=== PATIENT | female | born 1945 | race Two or more races ===

== ENCOUNTER → 2017-08-04 | Outpatient (CLI) | payer MEDICARE, OTHER ==
[2017-08-04 09:09] LABS: ADD MAN DIFF? NO
[2017-08-04 09:18] LABS: BASOPHILS % 0.6 % (0.0-2.0); EOSINOPHILS # 0.2 10^3/ul (0.0-0.5); EOSINOPHILS % 3.3 % (0.0-7.0); HEMATOCRIT 36.9 % (37.0-47.0); HEMOGLOBIN 11.3 g/dl (12.0-16.0); LYMPHOCYTES # 1.8 10^3/ul (0.8-2.9); LYMPHOCYTES % 26.4 % (15.0-51.0); MEAN CORPUSCULAR HEMOGLOBIN 26.5 pg (29.0-33.0); MEAN CORPUSCULAR HGB CONC 30.6 g/dl (32.0-37.0); MEAN CORPUSCULAR VOLUME 86.4 fl (82.0-101.0); MEAN PLATELET VOLUME 10.9 fl (7.4-10.4); MONOCYTE # 0.4 10^3/ul (0.3-0.9); MONOCYTES % 6.5 % (0.0-11.0); NEUTROPHIL # 4.2 10^3/ul (1.6-7.5); NEUTROPHILS % 62.9 % (39.0-77.0); PLATELET COUNT 238 10^3/UL (140-415); RED BLOOD COUNT 4.27 10^6/ul (4.20-5.40); RED CELL DISTRIBUTION WIDTH 13.4 % (11.5-14.5)
[2017-08-04 09:18] LABS: WHITE BLOOD COUNT 6.7 10^3/ul (4.8-10.8)
[2017-08-04 09:39] LABS: ALANINE AMINOTRANSFERASE 33 IU/L (13-69); ALBUMIN 4.1 g/dl (3.3-4.9); ALBUMIN/GLOBULIN RATIO 1.13; ALKALINE PHOSPHATASE 90 IU/L (42-121); ANION GAP 15 (8-16); ASPARTATE AMINO TRANSFERASE 22 IU/L (15-46); BILIRUBIN,INDIRECT 0.3 mg/dl (0-1.1); BILIRUBIN,TOTAL 0.3 mg/dl (0.2-1.3); BLOOD UREA NITROGEN 12 mg/dl (7-20); CALCIUM 9.6 mg/dl (8.4-10.2); CARBON DIOXIDE 30 mmol/L (21-31); CHLORIDE 103 mmol/L (97-110); CHOL/HDL RATIO 3.1 RATIO; CHOLESTEROL 140 mg/dl (100-200); CREATININE 0.63 mg/dl (0.44-1.00); GLUCOSE 118 mg/dl (70-220); HDL CHOLESTEROL 45 mg/dl (33-92); LDL CHOLESTEROL,CALCULATED 71 mg/dl; POTASSIUM 4.6 mmol/L (3.5-5.1); SODIUM 143 mmol/L (135-144); TOTAL PROTEIN 7.7 g/dl (6.1-8.1); TRIGLYCERIDES 122 mg/dl (0-149)
[2017-08-04 09:42] LABS: INR 2.22; PROTIME 25.2 Sec (11.9-14.9)
[2017-08-04 10:17] LABS: ADD UMIC YES; UR ASCORBIC ACID NEGATIVE (NEGATIVE); UR BACTERIA MANY /HPF (NONE SEEN); UR BILIRUBIN (Dip) NEGATIVE (NEGATIVE); UR BLOOD (Dip) NEGATIVE (NEGATIVE); UR CLARITY SLIGHTLY CLOUDY (CLEAR); UR COLOR YELLOW (YELLOW); UR GLUCOSE (Dip) NEGATIVE (NEGATIVE); UR KETONES (Dip) NEGATIVE (NEGATIVE); UR LEUKOCYTE ESTERASE (Dip) NEGATIVE Leu/ul (NEGATIVE); UR NITRITE (Dip) POSITIVE (NEGATIVE); UR RBC 1 /HPF (0-5); UR SPECIFIC GRAVITY (Dip) 1.014 (1.003-1.030); UR SQUAMOUS EPITHELIAL CELL FEW /HPF (FEW); UR TOTAL PROTEIN (Dip) NEGATIVE (NEGATIVE); UR UROBILINOGEN (Dip) NEGATIVE (NEGATIVE); UR WBC 3 /HPF (0-5)
[2017-08-04 10:31] LABS: HEMOGLOBIN A1C 6.3 % (0-5.9)
[2017-08-05 15:07] LABS: CREATININE, RANDOM URINE 85 mg/dL (20-320); MICROALBUMIN 0.5 mg/dL; MICROALBUMIN/CREATININE RATIO 6 (<30)
[2017-08-05 17:21] LABS: PTH CALCIUM 9.4 mg/dL (8.6-10.4)
[2017-08-06 07:46] LABS: PTH INTACT 62 pg/mL (14-64)
== END | disposition home or self-care (01) ==
LOC: LAB 08:33
DX: E11.9 Type 2 diabetes mellitus without complications (principal); I10 Essential (primary) hypertension; I25.10 Atherosclerotic heart disease of native coronary artery without angina pectoris; I48.91 Unspecified atrial fibrillation
CPT/HCPCS: 80053; 80061; 81001; 82043; 83036; 83970; 85025; 85610

== ENCOUNTER → 2017-10-10 | Outpatient (CLI) | payer MEDICARE, OTHER ==
[2017-10-10 09:25] LABS: ADD MAN DIFF? NO
[2017-10-10 09:32] LABS: BASOPHIL # 0.1 10^3/ul (0.0-0.1); BASOPHILS % 0.7 % (0.0-2.0); EOSINOPHILS # 0.2 10^3/ul (0.0-0.5); EOSINOPHILS % 3.4 % (0.0-7.0); HEMATOCRIT 37.7 % (37.0-47.0); HEMOGLOBIN 11.5 g/dl (12.0-16.0); LYMPHOCYTES # 1.8 10^3/ul (0.8-2.9); LYMPHOCYTES % 26.3 % (15.0-51.0); MEAN CORPUSCULAR HGB CONC 30.5 g/dl (32.0-37.0); MEAN CORPUSCULAR VOLUME 85.3 fl (82.0-101.0); MEAN PLATELET VOLUME 11.3 fl (7.4-10.4); MONOCYTE # 0.4 10^3/ul (0.3-0.9); MONOCYTES % 6.1 % (0.0-11.0); NEUTROPHIL # 4.2 10^3/ul (1.6-7.5); NEUTROPHILS % 63.1 % (39.0-77.0); PLATELET COUNT 213 10^3/UL (140-415); RED BLOOD COUNT 4.42 10^6/ul (4.20-5.40); RED CELL DISTRIBUTION WIDTH 13.9 % (11.5-14.5)
[2017-10-10 09:32] LABS: WHITE BLOOD COUNT 6.7 10^3/ul (4.8-10.8)
[2017-10-10 09:37] LABS: HEMOGLOBIN A1C 6.2 % (0-5.9)
[2017-10-10 09:38] LABS: UR BACTERIA MANY /HPF (NONE SEEN); UR RBC 1 /HPF (0-5); UR SQUAMOUS EPITHELIAL CELL FEW /HPF (FEW); UR WBC 21 /HPF (0-5)
[2017-10-10 09:48] LABS: ADD UMIC YES; UR ASCORBIC ACID NEGATIVE (NEGATIVE); UR BILIRUBIN (Dip) NEGATIVE (NEGATIVE); UR BLOOD (Dip) NEGATIVE (NEGATIVE); UR CLARITY SLIGHTLY CLOUDY (CLEAR); UR COLOR YELLOW (YELLOW); UR GLUCOSE (Dip) NEGATIVE (NEGATIVE); UR KETONES (Dip) NEGATIVE (NEGATIVE); UR LEUKOCYTE ESTERASE (Dip) 1+ Leu/ul (NEGATIVE); UR NITRITE (Dip) POSITIVE (NEGATIVE); UR SPECIFIC GRAVITY (Dip) 1.016 (1.003-1.030); UR TOTAL PROTEIN (Dip) NEGATIVE (NEGATIVE); UR UROBILINOGEN (Dip) NEGATIVE (NEGATIVE)
[2017-10-10 09:58] LABS: ALANINE AMINOTRANSFERASE 28 IU/L (13-69); ALBUMIN 4.1 g/dl (3.3-4.9); ALBUMIN/GLOBULIN RATIO 1.17; ALKALINE PHOSPHATASE 92 IU/L (42-121); ANION GAP 10 (8-16); ASPARTATE AMINO TRANSFERASE 24 IU/L (15-46); BILIRUBIN,INDIRECT 0.6 mg/dl (0-1.1); BILIRUBIN,TOTAL 0.6 mg/dl (0.2-1.3); BLOOD UREA NITROGEN 11 mg/dl (7-20); CALCIUM 9.3 mg/dl (8.4-10.2); CARBON DIOXIDE 31 mmol/L (21-31); CHLORIDE 107 mmol/L (97-110); CHOLESTEROL 139 mg/dl (100-200); CREATININE 0.62 mg/dl (0.44-1.00); GLUCOSE 119 mg/dl (70-220); HDL CHOLESTEROL 45 mg/dl (33-92); LDL CHOLESTEROL,CALCULATED 64 mg/dl; POTASSIUM 4.4 mmol/L (3.5-5.1); SODIUM 144 mmol/L (135-144); TOTAL PROTEIN 7.6 g/dl (6.1-8.1); TRIGLYCERIDES 151 mg/dl (0-149)
[2017-10-10 10:02] LABS: INR 2.28; PROTIME 25.7 Sec (11.9-14.9)
[2017-10-13 14:57] LABS: CREATININE, RANDOM URINE 161 mg/dL (20-320); MICROALBUMIN 0.9 mg/dL; MICROALBUMIN/CREATININE RATIO 6 (<30)
[2017-10-13 17:11] LABS: PTH CALCIUM 9.2 mg/dL (8.6-10.4)
[2017-10-14 07:47] LABS: PTH INTACT 59 pg/mL (14-64)
== END | disposition home or self-care (01) ==
LOC: LAB 08:22
DX: I12.9 Hypertensive chronic kidney disease with stage 1 through stage 4 chronic kidney disease, or unspecified chronic kidney disease (principal); N18.9 Chronic kidney disease, unspecified
CPT/HCPCS: 80053; 80061; 81001; 82043; 83036; 83970; 85025; 85610

== ENCOUNTER → 2017-12-10 | Outpatient (CLI) | payer MEDICARE, OTHER | END | disposition home or self-care (01) | LOC: RAD 09:28 | DX: R91.8 Other nonspecific abnormal finding of lung field (principal) | CPT/HCPCS: 71046 ==

== ENCOUNTER → 2017-12-19 | Outpatient (CLI) | payer MEDICARE, OTHER | END | disposition home or self-care (01) | LOC: RAD 08:53 | DX: N18.9 Chronic kidney disease, unspecified (principal); I51.7 Cardiomegaly; J90 Pleural effusion, not elsewhere classified | CPT/HCPCS: 71046 ==

== ENCOUNTER 2017-12-20 08:38 | Inpatient (IN) | payer MEDICARE, OTHER ==
[2017-12-20 09:15] LABS: ADD MAN DIFF? NO
[2017-12-20 09:19] LABS: BASOPHILS % 0.5 % (0.0-2.0); EOSINOPHILS # 0.3 10^3/ul (0.0-0.5); HEMOGLOBIN 12.9 g/dl (12.0-16.0); LYMPHOCYTES # 1.7 10^3/ul (0.8-2.9); LYMPHOCYTES % 19.2 % (15.0-51.0); MEAN CORPUSCULAR HEMOGLOBIN 25.6 pg (29.0-33.0); MEAN CORPUSCULAR HGB CONC 30.7 g/dl (32.0-37.0); MEAN CORPUSCULAR VOLUME 83.3 fl (82.0-101.0); MEAN PLATELET VOLUME 11.2 fl (7.4-10.4); MONOCYTE # 0.7 10^3/ul (0.3-0.9); MONOCYTES % 7.7 % (0.0-11.0); NEUTROPHIL # 6.1 10^3/ul (1.6-7.5); NEUTROPHILS % 69.3 % (39.0-77.0); PLATELET COUNT 267 10^3/UL (140-415); RED BLOOD COUNT 5.04 10^6/ul (4.20-5.40); RED CELL DISTRIBUTION WIDTH 13.9 % (11.5-14.5)
[2017-12-20 09:19] LABS: WHITE BLOOD COUNT 8.9 10^3/ul (4.8-10.8)
[2017-12-20] MEDS: SOD CHLORIDE 0.9% 500 ML IV (09:19)
[2017-12-20 09:40] LABS: ALANINE AMINOTRANSFERASE 24 IU/L (13-69); ALBUMIN 4.4 g/dl (3.3-4.9); ALBUMIN/GLOBULIN RATIO 1.18; ALKALINE PHOSPHATASE 93 IU/L (42-121); ANION GAP 12 (8-16); ASPARTATE AMINO TRANSFERASE 26 IU/L (15-46); BILIRUBIN,INDIRECT 0.8 mg/dl (0-1.1); BILIRUBIN,TOTAL 0.8 mg/dl (0.2-1.3); BLOOD UREA NITROGEN 17 mg/dl (7-20); CALCIUM 9.3 mg/dl (8.4-10.2); CARBON DIOXIDE 33 mmol/L (21-31); CHLORIDE 100 mmol/L (97-110); CREATININE 0.67 mg/dl (0.44-1.00); GLUCOSE 142 mg/dl (70-220); LIPASE 50 U/L (23-300); POTASSIUM 3.8 mmol/L (3.5-5.1); SODIUM 141 mmol/L (135-144); TOTAL PROTEIN 8.1 g/dl (6.1-8.1)
[2017-12-20 09:49] LABS: TROPONIN-I < 0.010 ng/ml (0.000-0.120)
[2017-12-20 10:08] LABS: ADD UMIC YES; UR AMORPHOUS CRYSTAL FEW /HPF (NONE SEEN); UR ASCORBIC ACID NEGATIVE (NEGATIVE); UR BACTERIA MANY /HPF (NONE SEEN); UR BILIRUBIN (Dip) NEGATIVE (NEGATIVE); UR BLOOD (Dip) NEGATIVE (NEGATIVE); UR CLARITY SLIGHTLY CLOUDY (CLEAR); UR COLOR YELLOW (YELLOW); UR GLUCOSE (Dip) NEGATIVE (NEGATIVE); UR KETONES (Dip) NEGATIVE (NEGATIVE); UR LEUKOCYTE ESTERASE (Dip) TRACE Leu/ul (NEGATIVE); UR MUCUS FEW /HPF (NONE SEEN); UR NITRITE (Dip) NEGATIVE (NEGATIVE); UR RBC 2 /HPF (0-5); UR SPECIFIC GRAVITY (Dip) 1.017 (1.003-1.030); UR TOTAL PROTEIN (Dip) NEGATIVE (NEGATIVE); UR UROBILINOGEN (Dip) 2+ mg/dL (NEGATIVE); UR WBC 8 /HPF (0-5)
[2017-12-20] MEDS: CEPHALEXIN 500 MG CAP PO (10:53)
[2017-12-20] MEDS: FUROSEMIDE 40 MG INJ IV (10:55)
[2017-12-20 13:42] LABS: PROTIME 28.6 Sec (11.9-14.9); PT RATIO 2.2
[2017-12-20 14:39] LABS: INR 2.73; PROTIME 29.7 Sec (11.9-14.9); PT RATIO 2.3
[2017-12-20] MEDS ORDERED: DEXTROSE 50% 50 ML SYRINGE IV ×2 (15:00)
[2017-12-20] MEDS ORDERED: GLUCOSE GEL 15 GRAM TUBE PO ×2 (15:00)
[2017-12-20] MEDS ORDERED: GLUCAGON 1 MG INJ IM (15:00)
[2017-12-20] MEDS ORDERED: GLUCOSE GEL 15 GRAM TUBE BUCCAL (15:00)
[2017-12-20] MEDS ORDERED: NON-FORMULARY/PATIENT OWN MED (Digoxin* (Digitek*) 0.125 MG) PO (15:00)
[2017-12-20] MEDS: DIGOXIN 0.125 MG TAB PO (15:28)
[2017-12-20] MEDS ORDERED: ONDANSETRON 4 MG TAB PO (15:30)
[2017-12-20] MEDS ORDERED: DOCUSATE SODIUM 100 MG CAP PO (15:30)
[2017-12-20] MEDS ORDERED: ACETAMINOPHEN 650 MG SUPP PR (15:30)
[2017-12-20] MEDS ORDERED: ACETAMINOPHEN 325 MG TAB PO (15:30)
[2017-12-20] MEDS ORDERED: ONDANSETRON 4 MG INJ IV (15:30)
[2017-12-20] MEDS ORDERED: morphine 2 MG INJ IV (15:30)
[2017-12-20] MEDS ORDERED: MAGNESIUM HYDROXIDE 30ML CUP PO (15:30)
[2017-12-20] MEDS: OXYBUTYNIN 5 MG TAB PO (15:39)
[2017-12-20] MEDS: METOPROLOL (XL) 50 MG TAB PO ×2 (15:40→20:25)
[2017-12-20] MEDS: CEFTRIAXONE 1 GM/50 ML (PMX) 50 ML IVPB (15:40)
[2017-12-20] MEDS: ROPINIROLE 0.25 MG TAB PO (16:29)
[2017-12-20] MEDS: metFORMIN 500 MG TAB PO (17:10)
[2017-12-20] MEDS: ATORVASTATIN 40 MG TAB PO (20:24)
[2017-12-21 05:37] LABS: ADD MAN DIFF? NO
[2017-12-21] MEDS: PANTOPRAZOLE (EC) 40 MG TAB PO (05:47)
[2017-12-21 05:50] LABS: WHITE BLOOD COUNT 9.7 10^3/ul (4.8-10.8)
[2017-12-21 05:50] LABS: BASOPHIL # 0.1 10^3/ul (0.0-0.1); BASOPHILS % 0.6 % (0.0-2.0); EOSINOPHILS # 0.2 10^3/ul (0.0-0.5); EOSINOPHILS % 2.1 % (0.0-7.0); HEMOGLOBIN 12.8 g/dl (12.0-16.0); LYMPHOCYTES # 1.4 10^3/ul (0.8-2.9); LYMPHOCYTES % 14.6 % (15.0-51.0); MEAN CORPUSCULAR HEMOGLOBIN 26.2 pg (29.0-33.0); MEAN CORPUSCULAR HGB CONC 31.2 g/dl (32.0-37.0); MEAN PLATELET VOLUME 11.3 fl (7.4-10.4); MONOCYTE # 0.7 10^3/ul (0.3-0.9); MONOCYTES % 7.2 % (0.0-11.0); NEUTROPHIL # 7.3 10^3/ul (1.6-7.5); NEUTROPHILS % 75.1 % (39.0-77.0); PLATELET COUNT 265 10^3/UL (140-415); RED BLOOD COUNT 4.88 10^6/ul (4.20-5.40); RED CELL DISTRIBUTION WIDTH 13.5 % (11.5-14.5)
[2017-12-21 06:24] LABS: ALANINE AMINOTRANSFERASE 25 IU/L (13-69); ALBUMIN 4.2 g/dl (3.3-4.9); ALBUMIN/GLOBULIN RATIO 1.13; ALKALINE PHOSPHATASE 87 IU/L (42-121); ANION GAP 12 (8-16); ASPARTATE AMINO TRANSFERASE 26 IU/L (15-46); BILIRUBIN,INDIRECT 0.7 mg/dl (0-1.1); BILIRUBIN,TOTAL 0.7 mg/dl (0.2-1.3); BLOOD UREA NITROGEN 17 mg/dl (7-20); CARBON DIOXIDE 34 mmol/L (21-31); CHLORIDE 99 mmol/L (97-110); CREATININE 0.65 mg/dl (0.44-1.00); GLUCOSE 135 mg/dl (70-220); POTASSIUM 3.5 mmol/L (3.5-5.1); SODIUM 141 mmol/L (135-144); TOTAL PROTEIN 7.9 g/dl (6.1-8.1)
[2017-12-21 07:19] LABS: B-TYPE NATRIURETIC PEPTIDE 338 PG/ML (0-125)
[2017-12-21 08:20] LABS: HEMOGLOBIN A1C 6.3 % (0-5.9)
[2017-12-21] MEDS: metFORMIN 500 MG TAB PO ×2 (09:16→18:12)
[2017-12-21] MEDS: METOPROLOL (XL) 50 MG TAB PO ×2 (09:16→20:10)
[2017-12-21] MEDS: OXYBUTYNIN 5 MG TAB PO (09:16)
[2017-12-21] MEDS: DIGOXIN 0.125 MG TAB PO (13:52)
[2017-12-21] MEDS: CEFTRIAXONE 1 GM/50 ML (PMX) 50 ML IVPB (15:33)
[2017-12-21] MEDS: LORAZEPAM 2 MG INJ IV (15:33)
[2017-12-21] MEDS: LIDOCAINE 1% (MDV) 10 ML INJ (16:57)
[2017-12-21 19:28] LABS: FLD RBC 6000 /uL; FLD WBC 2706 /cmm
[2017-12-21 19:39] LABS: FLUID GLUCOSE 110 mg/dl; FLUID LD 639 U/L; FLUID TOTAL PROTEIN 5.7 g/dl; FLUID TYPE PLEURAL FLUID
[2017-12-21] MEDS: APIXABAN 5 MG TABLET PO (20:10)
[2017-12-21] MEDS: ATORVASTATIN 40 MG TAB PO (20:10)
[2017-12-21 20:52] LABS: FLD CLARITY CLOUDY; FLD COLOR YELLOW
[2017-12-21 20:52] LABS: FLD TYPE THORACENTHESIS
[2017-12-22] MEDS: PANTOPRAZOLE (EC) 40 MG TAB PO (05:58)
[2017-12-22] MEDS: metFORMIN 500 MG TAB PO ×2 (09:02→18:10)
[2017-12-22] MEDS: OXYBUTYNIN 5 MG TAB PO (09:02)
[2017-12-22] MEDS: METOPROLOL (XL) 50 MG TAB PO ×2 (09:03→20:41)
[2017-12-22] MEDS: APIXABAN 5 MG TABLET PO ×2 (09:03→20:41)
[2017-12-22 09:38] LABS: ALANINE AMINOTRANSFERASE 18 IU/L (13-69); ALBUMIN 4.2 g/dl (3.3-4.9); ALBUMIN/GLOBULIN RATIO 1.16; ALKALINE PHOSPHATASE 86 IU/L (42-121); ANION GAP 16 (8-16); ASPARTATE AMINO TRANSFERASE 29 IU/L (15-46); BLOOD UREA NITROGEN 15 mg/dl (7-20); CALCIUM 9.1 mg/dl (8.4-10.2); CARBON DIOXIDE 30 mmol/L (21-31); CHLORIDE 96 mmol/L (97-110); CREATININE 0.68 mg/dl (0.44-1.00); GLUCOSE 160 mg/dl (70-220); POTASSIUM 3.7 mmol/L (3.5-5.1); SODIUM 138 mmol/L (135-144); TOTAL PROTEIN 7.8 g/dl (6.1-8.1)
[2017-12-22 13:12] LABS: TROPONIN-I < 0.010 ng/ml (0.000-0.120)
[2017-12-22] MEDS: DIGOXIN 0.125 MG TAB PO (13:46)
[2017-12-22] MEDS: CEFTRIAXONE 1 GM/50 ML (PMX) 50 ML IVPB (16:18)
[2017-12-22 18:44] LABS: TROPONIN-I < 0.010 ng/ml (0.000-0.120)
[2017-12-22] MEDS: ATORVASTATIN 40 MG TAB PO (20:41)
[2017-12-22] MEDS ORDERED: morphine LIQ (10 MG/5 ML) CUP PO (23:30)
[2017-12-23] MEDS: PANTOPRAZOLE (EC) 40 MG TAB PO (05:48)
[2017-12-23] MEDS: APIXABAN 5 MG TABLET PO (09:50)
[2017-12-23] MEDS: OXYBUTYNIN 5 MG TAB PO (09:50)
[2017-12-23] MEDS: metFORMIN 500 MG TAB PO (09:51)
[2017-12-23] MEDS: METOPROLOL (XL) 50 MG TAB PO (09:51)
[2017-12-23] MEDS: DIGOXIN 0.125 MG TAB PO (13:00)
[2017-12-23] MEDS: CEFTRIAXONE 1 GM/50 ML (PMX) 50 ML IVPB (16:03)
[2018-01-06] MEDS ORDERED: DOCUSATE SODIUM 100 MG CAP PO (13:30)
[2018-01-06] MEDS ORDERED: ACETAMINOPHEN 325 MG TAB PO (13:30)
[2018-01-07] MEDS ORDERED: PANTOPRAZOLE (EC) 40 MG TAB PO (06:00)
[2018-01-13] MEDS ORDERED: BARIUM SULFATE 0.1% 450 ML BTL (VOLUMEN) PO (15:25)
[2018-01-19] MEDS ORDERED: LIDOCAINE 2% (MDV) 20 ML INJ (11:41)
== END 2017-12-23 17:50 | disposition home health service (06) | DRG 187 ==
LOC: E/R 08:38 → MS3 11:30 → MS4 18:06
PROC: 0W9B3ZZ Drainage of Left Pleural Cavity, Percutaneous Approach (ICD-10-PCS; principal; 2017-12-21)
DX: J90 Pleural effusion, not elsewhere classified (principal); N39.0 Urinary tract infection, site not specified; I13.0 Hypertensive heart and chronic kidney disease with heart failure and stage 1 through stage 4 chronic kidney disease, or unspecified chronic kidney disease; I50.20 Unspecified systolic (congestive) heart failure; D68.59 Other primary thrombophilia; E11.22 Type 2 diabetes mellitus with diabetic chronic kidney disease; N18.9 Chronic kidney disease, unspecified; E66.9 Obesity, unspecified; Z68.31 Body mass index [BMI] 31.0-31.9, adult; Z86.73 Personal history of transient ischemic attack (TIA), and cerebral infarction without residual deficits; Z90.710 Acquired absence of both cervix and uterus; Z95.0 Presence of cardiac pacemaker; I48.2 Chronic atrial fibrillation; E78.5 Hyperlipidemia, unspecified
CPT/HCPCS: 32555; 36415; 71045; 71046; 80053; 81001; 82945; 83036; 83615; 83690; 83880; 83986; 84157; 84484; 85025; 85610; 87070; 87086; 87102; 87116; 88104; 88305; 89051; 93005; 93306; 96360; 96374; 97162; 99217; 99285-25; G0378

== ENCOUNTER → 2018-01-02 | Outpatient (CLI) | payer MEDICARE, OTHER | END | disposition home or self-care (01) | LOC: RAD 08:33 | DX: I50.9 Heart failure, unspecified (principal) | CPT/HCPCS: 71046 ==

== ENCOUNTER 2018-01-06 09:37 | Inpatient (IN) | payer MEDICARE, OTHER ==
[2018-01-06 10:54] LABS: ADD MAN DIFF? NO
[2018-01-06 11:05] LABS: WHITE BLOOD COUNT 9.1 10^3/ul (4.8-10.8)
[2018-01-06 11:05] LABS: BASOPHIL # 0.1 10^3/ul (0.0-0.1); BASOPHILS % 0.5 % (0.0-2.0); EOSINOPHILS # 0.3 10^3/ul (0.0-0.5); EOSINOPHILS % 3.6 % (0.0-7.0); HEMATOCRIT 39.9 % (37.0-47.0); HEMOGLOBIN 12.4 g/dl (12.0-16.0); LYMPHOCYTES # 1.3 10^3/ul (0.8-2.9); LYMPHOCYTES % 14.5 % (15.0-51.0); MEAN CORPUSCULAR HEMOGLOBIN 26.2 pg (29.0-33.0); MEAN CORPUSCULAR HGB CONC 31.1 g/dl (32.0-37.0); MEAN CORPUSCULAR VOLUME 84.2 fl (82.0-101.0); MEAN PLATELET VOLUME 11.3 fl (7.4-10.4); MONOCYTE # 0.6 10^3/ul (0.3-0.9); MONOCYTES % 6.7 % (0.0-11.0); NEUTROPHIL # 6.8 10^3/ul (1.6-7.5); NEUTROPHILS % 74.3 % (39.0-77.0); PLATELET COUNT 301 10^3/UL (140-415); RED BLOOD COUNT 4.74 10^6/ul (4.20-5.40); RED CELL DISTRIBUTION WIDTH 13.9 % (11.5-14.5)
[2018-01-06 11:15] LABS: LACTIC ACID 1.8 mmol/L (0.5-2.0)
[2018-01-06 11:17] LABS: ALANINE AMINOTRANSFERASE 20 IU/L (13-69); ALBUMIN 4.1 g/dl (3.3-4.9); ALKALINE PHOSPHATASE 81 IU/L (42-121); ANION GAP 14 (8-16); ASPARTATE AMINO TRANSFERASE 22 IU/L (15-46); BILIRUBIN,INDIRECT 0.7 mg/dl (0-1.1); BILIRUBIN,TOTAL 0.7 mg/dl (0.2-1.3); BLOOD UREA NITROGEN 14 mg/dl (7-20); CALCIUM 9.5 mg/dl (8.4-10.2); CARBON DIOXIDE 31 mmol/L (21-31); CHLORIDE 99 mmol/L (97-110); GLUCOSE 127 mg/dl (70-220); POTASSIUM 3.9 mmol/L (3.5-5.1); SODIUM 140 mmol/L (135-144); TOTAL PROTEIN 7.8 g/dl (6.1-8.1)
[2018-01-06 11:26] LABS: INR 1.63; PROTIME 19.7 Sec (11.9-14.9); PT RATIO 1.5
[2018-01-06 11:27] LABS: PARTIAL THROMBOPLASTIN TIME 38.8 Sec (25.0-35.0); TROPONIN-I < 0.010 ng/ml (0.000-0.120)
[2018-01-06] MEDS ORDERED: HYDROCODONE/APAP (5/325) TAB PO (13:30)
[2018-01-06] MEDS ORDERED: ROPINIROLE 0.25 MG TAB PO (13:30)
[2018-01-06] MEDS: DEXTROSE 5%-0.45% NACL 1,000 ML IV (13:30)
[2018-01-06] MEDS ORDERED: ONDANSETRON 4 MG INJ IV (13:30)
[2018-01-06] MEDS ORDERED: NACL 0.9% 3 ML SYG IV (13:30)
[2018-01-06] MEDS: LIDOCAINE 1% (MDV) 10 ML INJ (13:51)
[2018-01-06] MEDS: FUROSEMIDE 40 MG INJ IV (14:39)
[2018-01-06] MEDS: CEFTRIAXONE 1 GM/50 ML (PMX) 50 ML IVPB (15:22)
[2018-01-06] MEDS: POTASSIUM CHLORIDE (SR) 8 MEQ CAP PO (19:12)
[2018-01-06 20:10] LABS: LACTIC ACID 2.5 mmol/L (0.5-2.0)
[2018-01-06] MEDS: INSULIN ASPART [NOVOLOG] 3 ML PEN SC (21:00)
[2018-01-06] MEDS: ATORVASTATIN 40 MG TAB PO (22:01)
[2018-01-06] MEDS: METOPROLOL (XL) 50 MG TAB PO (22:01)
[2018-01-06] MEDS: SOD CHLORIDE 0.9% 1,000 ML IV (22:02)
[2018-01-06] MEDS: AZITHROMYCIN 500MG/NS (PMX) 250 ML IVPB (22:02)
[2018-01-06] MEDS: ACETAMINOPHEN 325 MG TAB PO (22:19)
[2018-01-06] MEDS: ACCU-CHEK XX (22:34)
[2018-01-07] MEDS: PANTOPRAZOLE (EC) 40 MG TAB PO (05:33)
[2018-01-07 06:54] LABS: ADD MAN DIFF? NO
[2018-01-07 07:01] LABS: WHITE BLOOD COUNT 8.2 10^3/ul (4.8-10.8)
[2018-01-07 07:01] LABS: BASOPHILS % 0.5 % (0.0-2.0); EOSINOPHILS # 0.4 10^3/ul (0.0-0.5); EOSINOPHILS % 5.4 % (0.0-7.0); HEMATOCRIT 39.1 % (37.0-47.0); HEMOGLOBIN 12.2 g/dl (12.0-16.0); LYMPHOCYTES # 1.7 10^3/ul (0.8-2.9); LYMPHOCYTES % 21.3 % (15.0-51.0); MEAN CORPUSCULAR HEMOGLOBIN 26.2 pg (29.0-33.0); MEAN CORPUSCULAR HGB CONC 31.2 g/dl (32.0-37.0); MEAN CORPUSCULAR VOLUME 83.9 fl (82.0-101.0); MEAN PLATELET VOLUME 11.4 fl (7.4-10.4); MONOCYTE # 0.7 10^3/ul (0.3-0.9); MONOCYTES % 8.7 % (0.0-11.0); NEUTROPHIL # 5.2 10^3/ul (1.6-7.5); NEUTROPHILS % 63.7 % (39.0-77.0); PLATELET COUNT 267 10^3/UL (140-415); RED BLOOD COUNT 4.66 10^6/ul (4.20-5.40); RED CELL DISTRIBUTION WIDTH 13.9 % (11.5-14.5)
[2018-01-07] MEDS: INSULIN ASPART [NOVOLOG] 3 ML PEN SC ×4 (07:55→20:56)
[2018-01-07] MEDS ORDERED: POTASSIUM CHLORIDE (SR) 8 MEQ CAP PO (09:00)
[2018-01-07] MEDS: POTASSIUM CHLORIDE (SR) 8 MEQ CAP PO (09:38)
[2018-01-07] MEDS: FUROSEMIDE 40 MG INJ IV ×2 (09:38→20:56)
[2018-01-07] MEDS: OXYBUTYNIN 5 MG TAB PO (09:38)
[2018-01-07] MEDS: METOPROLOL (XL) 50 MG TAB PO ×2 (09:39→20:55)
[2018-01-07] MEDS: DEXTROSE 5%-0.45% NACL 1,000 ML IV (12:34)
[2018-01-07] MEDS: CEFTRIAXONE 1 GM/50 ML (PMX) 50 ML IVPB (12:39)
[2018-01-07 20:45] LABS: TROPONIN-I < 0.010 ng/ml (0.000-0.120)
[2018-01-07] MEDS: AZITHROMYCIN 500MG/NS (PMX) 250 ML IVPB (20:54)
[2018-01-07] MEDS: ATORVASTATIN 40 MG TAB PO (20:55)
[2018-01-07] MEDS: APIXABAN 5 MG TABLET PO (20:55)
[2018-01-07] MEDS: ACETAMINOPHEN 325 MG TAB PO (23:29)
[2018-01-08 01:36] LABS: TROPONIN-I 0.016 ng/ml (0.000-0.120)
[2018-01-08] MEDS: ACCU-CHEK XX (02:00)
[2018-01-08] MEDS: PANTOPRAZOLE (EC) 40 MG TAB PO (05:47)
[2018-01-08] MEDS: FUROSEMIDE 40 MG INJ IV ×2 (05:48→17:13)
[2018-01-08 07:53] LABS: ANION GAP 14 (8-16); BLOOD UREA NITROGEN 14 mg/dl (7-20); CALCIUM 9.1 mg/dl (8.4-10.2); CARBON DIOXIDE 30 mmol/L (21-31); CHLORIDE 100 mmol/L (97-110); CREATININE 0.63 mg/dl (0.44-1.00); GLUCOSE 135 mg/dl (70-220); POTASSIUM 3.8 mmol/L (3.5-5.1); SODIUM 140 mmol/L (135-144)
[2018-01-08] MEDS: INSULIN ASPART [NOVOLOG] 3 ML PEN SC ×4 (07:55→20:13)
[2018-01-08 08:01] LABS: TROPONIN-I 0.013 ng/ml (0.000-0.120)
[2018-01-08] MEDS: POTASSIUM CHLORIDE (SR) 8 MEQ CAP PO (09:07)
[2018-01-08] MEDS: APIXABAN 5 MG TABLET PO ×2 (09:07→20:03)
[2018-01-08] MEDS: OXYBUTYNIN 5 MG TAB PO (09:07)
[2018-01-08] MEDS: METOPROLOL (XL) 50 MG TAB PO ×2 (09:08→20:02)
[2018-01-08 12:36] LABS: FLD RBC 4000 /uL; FLD WBC 692 /cmm
[2018-01-08 12:41] LABS: FLUID GLUCOSE 114 mg/dl; FLUID LD 535 U/L; FLUID TOTAL PROTEIN 5.2 g/dl; FLUID TYPE PLEURAL FLUID
[2018-01-08 13:16] LABS: FLD CLARITY HAZY; FLD COLOR YELLOW; PATH REVIEW? YES
[2018-01-08 13:16] LABS: FLD TYPE PLEURAL
[2018-01-08] MEDS: CEFTRIAXONE 1 GM/50 ML (PMX) 50 ML IVPB (14:06)
[2018-01-08] MEDS: AZITHROMYCIN 500MG/NS (PMX) 250 ML IVPB (20:02)
[2018-01-08] MEDS: ATORVASTATIN 40 MG TAB PO (20:02)
[2018-01-08] MEDS: DOCUSATE SODIUM 100 MG CAP PO (20:09)
[2018-01-09] MEDS: ACCU-CHEK XX (02:00)
[2018-01-09] MEDS: PANTOPRAZOLE (EC) 40 MG TAB PO (05:09)
[2018-01-09] MEDS: FUROSEMIDE 40 MG INJ IV ×2 (05:10→18:13)
[2018-01-09] MEDS: INSULIN ASPART [NOVOLOG] 3 ML PEN SC ×4 (07:54→20:26)
[2018-01-09] MEDS: POTASSIUM CHLORIDE (SR) 8 MEQ CAP PO (08:21)
[2018-01-09] MEDS: METOPROLOL (XL) 50 MG TAB PO ×2 (08:22→20:17)
[2018-01-09] MEDS: OXYBUTYNIN 5 MG TAB PO (08:22)
[2018-01-09] MEDS: APIXABAN 5 MG TABLET PO ×2 (08:22→20:26)
[2018-01-09] MEDS: CEFTRIAXONE 1 GM/50 ML (PMX) 50 ML IVPB (13:43)
[2018-01-09 14:03] LABS: PATH REVIEW CH
[2018-01-09 14:28] LABS: FLD PMN% 33.4 %
[2018-01-09 14:30] LABS: FLD MN% 66.6 %
[2018-01-09] MEDS: AZITHROMYCIN 500MG/NS (PMX) 250 ML IVPB (20:16)
[2018-01-09] MEDS: ATORVASTATIN 40 MG TAB PO (20:16)
[2018-01-10] MEDS: ACCU-CHEK XX ×2 (02:00→21:22)
[2018-01-10] MEDS: FUROSEMIDE 40 MG INJ IV ×2 (06:08→17:10)
[2018-01-10] MEDS: PANTOPRAZOLE (EC) 40 MG TAB PO (06:08)
[2018-01-10] MEDS: INSULIN ASPART [NOVOLOG] 3 ML PEN SC ×4 (07:55→21:00)
[2018-01-10] MEDS: METOPROLOL (XL) 50 MG TAB PO ×2 (08:03→21:20)
[2018-01-10] MEDS: OXYBUTYNIN 5 MG TAB PO (08:03)
[2018-01-10] MEDS: APIXABAN 5 MG TABLET PO ×2 (08:04→20:32)
[2018-01-10] MEDS: POTASSIUM CHLORIDE (SR) 8 MEQ CAP PO (08:04)
[2018-01-10 09:19] LABS: ADD MAN DIFF? NO
[2018-01-10 09:25] LABS: BASOPHIL # 0.1 10^3/ul (0.0-0.1); BASOPHILS % 0.5 % (0.0-2.0); EOSINOPHILS # 0.3 10^3/ul (0.0-0.5); EOSINOPHILS % 3.4 % (0.0-7.0); HEMATOCRIT 39.7 % (37.0-47.0); HEMOGLOBIN 12.5 g/dl (12.0-16.0); IMMATURE GRANS #M 0.03 10^3/ul; IMMATURE GRANS % (M) 0.3 %; LYMPHOCYTES # 1.4 10^3/ul (0.8-2.9); LYMPHOCYTES % 14.9 % (15.0-51.0); MEAN CORPUSCULAR HEMOGLOBIN 25.8 pg (29.0-33.0); MEAN CORPUSCULAR HGB CONC 31.5 g/dl (32.0-37.0); MEAN CORPUSCULAR VOLUME 81.9 fl (82.0-101.0); MEAN PLATELET VOLUME 11.8 fl (7.4-10.4); MONOCYTE # 0.6 10^3/ul (0.3-0.9); MONOCYTES % 6.8 % (0.0-11.0); NEUTROPHIL # 6.8 10^3/ul (1.6-7.5); NEUTROPHILS % 74.1 % (39.0-77.0); PLATELET COUNT 309 10^3/UL (140-415); RED BLOOD COUNT 4.85 10^6/ul (4.20-5.40)
[2018-01-10 09:25] LABS: WHITE BLOOD COUNT 9.2 10^3/ul (4.8-10.8)
[2018-01-10 10:03] LABS: ANION GAP 15 (8-16); BLOOD UREA NITROGEN 12 mg/dl (7-20); CALCIUM 9.1 mg/dl (8.4-10.2); CARBON DIOXIDE 31 mmol/L (21-31); CHLORIDE 98 mmol/L (97-110); CREATININE 0.63 mg/dl (0.44-1.00); GLUCOSE 128 mg/dl (70-220); POTASSIUM 3.1 mmol/L (3.5-5.1); SODIUM 141 mmol/L (135-144)
[2018-01-10] MEDS: POTASSIUM CHLORIDE (SR) 20 MEQ TAB PO (11:01)
[2018-01-10] MEDS: LORAZEPAM 2 MG INJ IV (11:43)
[2018-01-10] MEDS: CEFTRIAXONE 1 GM/50 ML (PMX) 50 ML IVPB (13:43)
[2018-01-10] MEDS ORDERED: ALPRAZOLAM 0.25 MG TAB NGT (14:30)
[2018-01-10] MEDS ORDERED: LORAZEPAM 2 MG INJ IV (14:30)
[2018-01-10 15:13] LABS: PROTIME 16.4 Sec (11.9-14.9); PT RATIO 1.3
[2018-01-10] MEDS: ATORVASTATIN 40 MG TAB PO (21:10)
[2018-01-10] MEDS: AZITHROMYCIN 500MG/NS (PMX) 250 ML IVPB (21:10)
[2018-01-10] MEDS: ALPRAZOLAM 0.25 MG TAB PO (21:10)
[2018-01-10] MEDS: ACETAMINOPHEN 325 MG TAB PO (21:25)
[2018-01-11] MEDS: FUROSEMIDE 40 MG INJ IV ×2 (06:13→17:34)
[2018-01-11] MEDS: PANTOPRAZOLE (EC) 40 MG TAB PO (06:13)
[2018-01-11 07:11] LABS: ADD MAN DIFF? NO
[2018-01-11 07:14] LABS: BASOPHILS % 0.5 % (0.0-2.0); EOSINOPHILS # 0.4 10^3/ul (0.0-0.5); HEMATOCRIT 42.9 % (37.0-47.0); HEMOGLOBIN 13.3 g/dl (12.0-16.0); IMMATURE GRANS #M 0.03 10^3/ul; IMMATURE GRANS % (M) 0.3 %; LYMPHOCYTES # 1.5 10^3/ul (0.8-2.9); LYMPHOCYTES % 16.4 % (15.0-51.0); MEAN CORPUSCULAR HEMOGLOBIN 25.9 pg (29.0-33.0); MEAN CORPUSCULAR VOLUME 83.6 fl (82.0-101.0); MEAN PLATELET VOLUME 11.5 fl (7.4-10.4); MONOCYTE # 0.6 10^3/ul (0.3-0.9); MONOCYTES % 6.5 % (0.0-11.0); NEUTROPHIL # 6.3 10^3/ul (1.6-7.5); NEUTROPHILS % 71.3 % (39.0-77.0); PLATELET COUNT 341 10^3/UL (140-415); RED BLOOD COUNT 5.13 10^6/ul (4.20-5.40); RED CELL DISTRIBUTION WIDTH 13.7 % (11.5-14.5)
[2018-01-11 07:14] LABS: WHITE BLOOD COUNT 8.8 10^3/ul (4.8-10.8)
[2018-01-11 07:30] LABS: ANION GAP 16 (8-16); BLOOD UREA NITROGEN 14 mg/dl (7-20); CALCIUM 9.6 mg/dl (8.4-10.2); CARBON DIOXIDE 30 mmol/L (21-31); CHLORIDE 99 mmol/L (97-110); CREATININE 0.68 mg/dl (0.44-1.00); GLUCOSE 145 mg/dl (70-220); POTASSIUM 4.2 mmol/L (3.5-5.1); SODIUM 141 mmol/L (135-144)
[2018-01-11] MEDS: OXYBUTYNIN 5 MG TAB PO (08:00)
[2018-01-11] MEDS: POTASSIUM CHLORIDE (SR) 8 MEQ CAP PO (08:00)
[2018-01-11] MEDS: METOPROLOL (XL) 50 MG TAB PO ×2 (08:01→21:28)
[2018-01-11] MEDS: ALPRAZOLAM 0.25 MG TAB PO ×3 (08:09→21:57)
[2018-01-11] MEDS: INSULIN ASPART [NOVOLOG] 3 ML PEN SC ×4 (08:15→21:57)
[2018-01-11] MEDS: APIXABAN 5 MG TABLET PO ×2 (08:24→21:27)
[2018-01-11] MEDS: LORAZEPAM 2 MG INJ IV (11:51)
[2018-01-11] MEDS: CEFTRIAXONE 1 GM/50 ML (PMX) 50 ML IVPB ×3 (12:55→15:14)
[2018-01-11] MEDS: LIDOCAINE 1% (MPF) 5 ML VIAL (12:58)
[2018-01-11] MEDS: ACETAMINOPHEN 325 MG TAB PO (14:39)
[2018-01-11] MEDS: SOD CHLORIDE 0.9% 100 ML (20:20)
[2018-01-11] MEDS: IODIXANOL LOCM 100 ML BTL (20:20)
[2018-01-11] MEDS: ATORVASTATIN 40 MG TAB PO (21:27)
[2018-01-11] MEDS: AZITHROMYCIN 500MG/NS (PMX) 250 ML IVPB (21:27)
[2018-01-12] MEDS: ACCU-CHEK XX (01:30)
[2018-01-12] MEDS: FUROSEMIDE 40 MG INJ IV ×2 (06:26→17:01)
[2018-01-12] MEDS: PANTOPRAZOLE (EC) 40 MG TAB PO (06:26)
[2018-01-12] MEDS: APIXABAN 5 MG TABLET PO ×2 (08:02→20:08)
[2018-01-12] MEDS: OXYBUTYNIN 5 MG TAB PO (08:02)
[2018-01-12] MEDS: ALPRAZOLAM 0.25 MG TAB PO ×2 (08:02→20:09)
[2018-01-12] MEDS: METOPROLOL (XL) 50 MG TAB PO ×2 (08:03→20:10)
[2018-01-12] MEDS: POTASSIUM CHLORIDE (SR) 8 MEQ CAP PO (08:03)
[2018-01-12] MEDS: INSULIN ASPART [NOVOLOG] 3 ML PEN SC ×4 (08:08→20:19)
[2018-01-12] MEDS: LUBIPROSTONE 24 MCG CAP PO ×2 (11:46→20:08)
[2018-01-12 12:16] LABS: CARCINOEMBRYONIC ANTIGEN 6.2 ng/ml (0.0-5.0)
[2018-01-12] MEDS: ALBUTEROL/IPRATROPIUM (NEB) 3 ML AMP HHN ×2 (16:52→19:56)
[2018-01-12] MEDS: CEFTRIAXONE 1 GM/50 ML (PMX) 50 ML IVPB (17:00)
[2018-01-12] MEDS: GUAIFENESIN/DM 5ML CUP PO (17:01)
[2018-01-12] MEDS: ATORVASTATIN 40 MG TAB PO (20:08)
[2018-01-12] MEDS: AZITHROMYCIN 500MG/NS (PMX) 250 ML IVPB (20:08)
[2018-01-13] MEDS: ALBUTEROL/IPRATROPIUM (NEB) 3 ML AMP HHN ×4 (01:45→19:52)
[2018-01-13] MEDS: ACCU-CHEK XX (02:00)
[2018-01-13] MEDS: PANTOPRAZOLE (EC) 40 MG TAB PO (05:23)
[2018-01-13] MEDS: FUROSEMIDE 40 MG INJ IV ×2 (05:24→17:29)
[2018-01-13] MEDS: INSULIN ASPART [NOVOLOG] 3 ML PEN SC ×4 (08:02→20:40)
[2018-01-13] MEDS: OXYBUTYNIN 5 MG TAB PO (08:15)
[2018-01-13] MEDS: APIXABAN 5 MG TABLET PO (08:16)
[2018-01-13] MEDS: LUBIPROSTONE 24 MCG CAP PO ×2 (08:16→20:33)
[2018-01-13] MEDS: POTASSIUM CHLORIDE (SR) 8 MEQ CAP PO (08:16)
[2018-01-13] MEDS: METOPROLOL (XL) 50 MG TAB PO ×2 (08:16→20:41)
[2018-01-13] MEDS: ALPRAZOLAM 0.25 MG TAB PO ×2 (08:17→20:33)
[2018-01-13] MEDS: CEFTRIAXONE 1 GM/50 ML (PMX) 50 ML IVPB (13:38)
[2018-01-13] MEDS: SOD CHLORIDE 0.9% 100 ML (15:54)
[2018-01-13] MEDS: IOHEXOL 300MG/ML 150 ML BTL (15:54)
[2018-01-13] MEDS ORDERED: DEXTROSE 50% 50 ML SYRINGE IV ×2 (17:30)
[2018-01-13] MEDS ORDERED: GLUCOSE GEL 15 GRAM TUBE PO ×2 (17:30)
[2018-01-13] MEDS ORDERED: GLUCAGON 1 MG INJ IM (17:30)
[2018-01-13] MEDS ORDERED: GLUCOSE GEL 15 GRAM TUBE BUCCAL (17:30)
[2018-01-13] MEDS: ATORVASTATIN 40 MG TAB PO (20:35)
[2018-01-13] MEDS: ENOXAPARIN 100 MG/ML SYG SC (20:45)
[2018-01-14] MEDS: ACCU-CHEK XX (02:00)
[2018-01-14] MEDS: ALBUTEROL/IPRATROPIUM (NEB) 3 ML AMP HHN ×4 (03:19→19:37)
[2018-01-14] MEDS: FUROSEMIDE 40 MG INJ IV ×2 (05:33→17:36)
[2018-01-14] MEDS: PANTOPRAZOLE (EC) 40 MG TAB PO (05:33)
[2018-01-14] MEDS: OXYBUTYNIN 5 MG TAB PO (07:59)
[2018-01-14] MEDS: ALPRAZOLAM 0.25 MG TAB PO ×2 (07:59→20:55)
[2018-01-14] MEDS: LUBIPROSTONE 24 MCG CAP PO ×2 (08:00→20:58)
[2018-01-14] MEDS: POTASSIUM CHLORIDE (SR) 8 MEQ CAP PO (08:00)
[2018-01-14] MEDS: METOPROLOL (XL) 50 MG TAB PO ×2 (08:01→20:55)
[2018-01-14] MEDS: INSULIN ASPART [NOVOLOG] 3 ML PEN SC ×4 (08:16→20:58)
[2018-01-14] MEDS: ENOXAPARIN 100 MG/ML SYG SC (08:16)
[2018-01-14] MEDS ORDERED: HEPARIN 1000 UNITS/ML 10 ML INJ IV ×2 (12:30)
[2018-01-14] MEDS: HEPARIN 1000 UNITS/ML 10 ML INJ IV (13:19)
[2018-01-14 15:05] LABS: ADD MAN DIFF? NO
[2018-01-14 15:07] LABS: BASOPHIL # 0.1 10^3/ul (0.0-0.1); BASOPHILS % 0.5 % (0.0-2.0); EOSINOPHILS # 0.5 10^3/ul (0.0-0.5); EOSINOPHILS % 5.3 % (0.0-7.0); HEMATOCRIT 39.7 % (37.0-47.0); HEMOGLOBIN 12.7 g/dl (12.0-16.0); LYMPHOCYTES # 1.3 10^3/ul (0.8-2.9); LYMPHOCYTES % 13.8 % (15.0-51.0); MEAN CORPUSCULAR VOLUME 81.2 fl (82.0-101.0); MEAN PLATELET VOLUME 11.2 fl (7.4-10.4); MONOCYTE # 0.5 10^3/ul (0.3-0.9); NEUTROPHIL # 7.2 10^3/ul (1.6-7.5); PLATELET COUNT 306 10^3/UL (140-415); RED BLOOD COUNT 4.89 10^6/ul (4.20-5.40); RED CELL DISTRIBUTION WIDTH 13.7 % (11.5-14.5)
[2018-01-14 15:07] LABS: WHITE BLOOD COUNT 9.6 10^3/ul (4.8-10.8)
[2018-01-14 15:28] LABS: INR 1.51; PROTIME 18.5 Sec (11.9-14.9); PT RATIO 1.4
[2018-01-14 16:04] LABS: PARTIAL THROMBOPLASTIN TIME > 180.0 Sec (25.0-35.0)
[2018-01-14 18:02] LABS: PARTIAL THROMBOPLASTIN TIME 59.1 Sec (25.0-35.0)
[2018-01-14] MEDS: HEPARIN 25000 UNITS/250 ML 250 ML IV (18:47)
[2018-01-14] MEDS: ATORVASTATIN 40 MG TAB PO (20:54)
[2018-01-15] MEDS: ALBUTEROL/IPRATROPIUM (NEB) 3 ML AMP HHN ×4 (00:55→19:37)
[2018-01-15 01:52] LABS: PARTIAL THROMBOPLASTIN TIME 128.9 Sec (25.0-35.0)
[2018-01-15] MEDS: ACCU-CHEK XX (02:00)
[2018-01-15] MEDS: FUROSEMIDE 40 MG INJ IV ×2 (06:05→18:04)
[2018-01-15] MEDS: PANTOPRAZOLE (EC) 40 MG TAB PO (06:05)
[2018-01-15 06:09] LABS: ADD MAN DIFF? NO
[2018-01-15 06:13] LABS: BASOPHIL # 0.1 10^3/ul (0.0-0.1); BASOPHILS % 0.7 % (0.0-2.0); EOSINOPHILS # 0.6 10^3/ul (0.0-0.5); EOSINOPHILS % 6.8 % (0.0-7.0); HEMATOCRIT 36.6 % (37.0-47.0); HEMOGLOBIN 11.6 g/dl (12.0-16.0); LYMPHOCYTES # 1.3 10^3/ul (0.8-2.9); LYMPHOCYTES % 15.2 % (15.0-51.0); MEAN CORPUSCULAR HGB CONC 31.7 g/dl (32.0-37.0); MEAN CORPUSCULAR VOLUME 81.9 fl (82.0-101.0); MEAN PLATELET VOLUME 11.3 fl (7.4-10.4); MONOCYTE # 0.7 10^3/ul (0.3-0.9); NEUTROPHIL # 5.6 10^3/ul (1.6-7.5); NEUTROPHILS % 68.9 % (39.0-77.0); PLATELET COUNT 264 10^3/UL (140-415); RED BLOOD COUNT 4.47 10^6/ul (4.20-5.40); RED CELL DISTRIBUTION WIDTH 13.7 % (11.5-14.5)
[2018-01-15 06:13] LABS: WHITE BLOOD COUNT 8.2 10^3/ul (4.8-10.8)
[2018-01-15 06:50] LABS: ANION GAP 13 (8-16); BLOOD UREA NITROGEN 12 mg/dl (7-20); CARBON DIOXIDE 32 mmol/L (21-31); CHLORIDE 97 mmol/L (97-110); CREATININE 0.64 mg/dl (0.44-1.00); GLUCOSE 151 mg/dl (70-220); POTASSIUM 3.3 mmol/L (3.5-5.1); SODIUM 139 mmol/L (135-144)
[2018-01-15] MEDS: INSULIN ASPART [NOVOLOG] 3 ML PEN SC ×4 (08:03→20:38)
[2018-01-15] MEDS: LUBIPROSTONE 24 MCG CAP PO ×2 (09:00→20:34)
[2018-01-15] MEDS: POTASSIUM CHLORIDE (SR) 20 MEQ TAB PO ×2 (09:10→10:42)
[2018-01-15] MEDS: METOPROLOL (XL) 50 MG TAB PO ×2 (09:11→20:33)
[2018-01-15] MEDS: OXYBUTYNIN 5 MG TAB PO (09:12)
[2018-01-15] MEDS: POTASSIUM CHLORIDE (SR) 8 MEQ CAP PO (09:12)
[2018-01-15] MEDS: ALPRAZOLAM 0.25 MG TAB PO ×2 (09:17→20:33)
[2018-01-15 09:32] LABS: PHOSPHORUS 3.4 mg/dl (2.5-4.9)
[2018-01-15 09:32] LABS: MAGNESIUM 1.7 mg/dl (1.7-2.5)
[2018-01-15 09:54] LABS: PARTIAL THROMBOPLASTIN TIME 78.8 Sec (25.0-35.0)
[2018-01-15] MEDS: HEPARIN 25000 UNITS/250 ML 250 ML IV (12:31)
[2018-01-15] MEDS: FLUCONAZOLE 200 MG TAB PO (16:42)
[2018-01-15 18:03] LABS: PARTIAL THROMBOPLASTIN TIME 97.4 Sec (25.0-35.0)
[2018-01-15] MEDS: ATORVASTATIN 40 MG TAB PO (20:33)
[2018-01-15] MEDS: DIGOXIN 500 MCG INJ IV (20:34)
[2018-01-16] MEDS: DEXTROSE 5%-0.45% NACL 1,000 ML IV
[2018-01-16] MEDS: ACCU-CHEK XX (02:00)
[2018-01-16] MEDS: ALBUTEROL/IPRATROPIUM (NEB) 3 ML AMP HHN ×4 (02:25→20:16)
[2018-01-16] MEDS: FUROSEMIDE 40 MG INJ IV ×2 (05:55→17:24)
[2018-01-16] MEDS: PANTOPRAZOLE (EC) 40 MG TAB PO (05:55)
[2018-01-16] MEDS: INSULIN ASPART [NOVOLOG] 3 ML PEN SC ×4 (08:24→21:00)
[2018-01-16 08:29] LABS: PARTIAL THROMBOPLASTIN TIME 23.5 Sec (25.0-35.0)
[2018-01-16] MEDS: METOPROLOL (XL) 50 MG TAB PO ×2 (09:55→20:59)
[2018-01-16] MEDS: ALPRAZOLAM 0.25 MG TAB PO ×2 (09:55→20:54)
[2018-01-16] MEDS ORDERED: DILTIAZEM 25 MG INJ IV (10:00)
[2018-01-16] MEDS: HEPARIN 25000 UNITS/250 ML 250 ML IV ×2 (11:00→15:30)
[2018-01-16] MEDS: LUBIPROSTONE 24 MCG CAP PO ×2 (11:50→21:00)
[2018-01-16] MEDS: FLUCONAZOLE 200 MG TAB PO (11:52)
[2018-01-16] MEDS: OXYBUTYNIN 5 MG TAB PO (11:52)
[2018-01-16] MEDS: POTASSIUM CHLORIDE (SR) 8 MEQ CAP PO (11:53)
[2018-01-16] MEDS: ACETAMINOPHEN 325 MG TAB PO (12:46)
[2018-01-16] MEDS ORDERED: BENZONATATE 100 MG CAP PO (16:30)
[2018-01-16 16:59] LABS: PARTIAL THROMBOPLASTIN TIME 71.2 Sec (25.0-35.0)
[2018-01-16] MEDS ORDERED: INSULIN DETEMIR [LEVEMIR] (100 UNITS/ML) SYG SC (20:00)
[2018-01-16] MEDS: ATORVASTATIN 40 MG TAB PO (20:54)
[2018-01-16] MEDS: ZOLPIDEM 5 MG TAB PO (23:12)
[2018-01-17 00:21] LABS: PARTIAL THROMBOPLASTIN TIME 74.7 Sec (25.0-35.0)
[2018-01-17] MEDS: ALBUTEROL/IPRATROPIUM (NEB) 3 ML AMP HHN ×4 (01:51→20:00)
[2018-01-17] MEDS: ACCU-CHEK XX (02:00)
[2018-01-17] MEDS: FUROSEMIDE 40 MG INJ IV ×2 (06:24→17:30)
[2018-01-17] MEDS: PANTOPRAZOLE (EC) 40 MG TAB PO (06:24)
[2018-01-17 06:37] LABS: ADD MAN DIFF? NO
[2018-01-17 06:40] LABS: WHITE BLOOD COUNT 8.1 10^3/ul (4.8-10.8)
[2018-01-17 06:40] LABS: BASOPHIL # 0.1 10^3/ul (0.0-0.1); BASOPHILS % 0.7 % (0.0-2.0); EOSINOPHILS # 0.5 10^3/ul (0.0-0.5); EOSINOPHILS % 6.4 % (0.0-7.0); HEMATOCRIT 35.9 % (37.0-47.0); HEMOGLOBIN 11.5 g/dl (12.0-16.0); LYMPHOCYTES # 1.4 10^3/ul (0.8-2.9); LYMPHOCYTES % 16.7 % (15.0-51.0); MEAN CORPUSCULAR HEMOGLOBIN 26.4 pg (29.0-33.0); MEAN CORPUSCULAR VOLUME 82.5 fl (82.0-101.0); MEAN PLATELET VOLUME 11.2 fl (7.4-10.4); MONOCYTE # 0.6 10^3/ul (0.3-0.9); MONOCYTES % 7.4 % (0.0-11.0); NEUTROPHIL # 5.5 10^3/ul (1.6-7.5); NEUTROPHILS % 68.2 % (39.0-77.0); PLATELET COUNT 265 10^3/UL (140-415); RED BLOOD COUNT 4.35 10^6/ul (4.20-5.40); RED CELL DISTRIBUTION WIDTH 13.8 % (11.5-14.5)
[2018-01-17 07:20] LABS: PARTIAL THROMBOPLASTIN TIME 108.9 Sec (25.0-35.0)
[2018-01-17 07:33] LABS: ANION GAP 10 (8-16); BLOOD UREA NITROGEN 11 mg/dl (7-20); CALCIUM 9.4 mg/dl (8.4-10.2); CARBON DIOXIDE 32 mmol/L (21-31); CHLORIDE 97 mmol/L (97-110); CREATININE 0.58 mg/dl (0.44-1.00); GLUCOSE 139 mg/dl (70-220); POTASSIUM 3.3 mmol/L (3.5-5.1); SODIUM 136 mmol/L (135-144)
[2018-01-17] MEDS: HEPARIN 25000 UNITS/250 ML 250 ML IV ×2 (07:49→08:59)
[2018-01-17] MEDS: INSULIN ASPART [NOVOLOG] 3 ML PEN SC ×4 (07:59→20:31)
[2018-01-17] MEDS: GUAIFENESIN/DM 5ML CUP PO (08:59)
[2018-01-17] MEDS: LUBIPROSTONE 24 MCG CAP PO ×2 (09:00→20:31)
[2018-01-17] MEDS: ALPRAZOLAM 0.25 MG TAB PO ×2 (09:00→20:32)
[2018-01-17] MEDS: POTASSIUM CHLORIDE (SR) 8 MEQ CAP PO (09:00)
[2018-01-17] MEDS: OXYBUTYNIN 5 MG TAB PO (09:01)
[2018-01-17] MEDS: FLUCONAZOLE 200 MG TAB PO (09:01)
[2018-01-17] MEDS: METOPROLOL (XL) 50 MG TAB PO ×2 (09:01→20:31)
[2018-01-17] MEDS: POTASSIUM CHLORIDE 20 MEQ POWDER FOR ORAL SOLN PO (11:32)
[2018-01-17 14:56] LABS: PARTIAL THROMBOPLASTIN TIME 76.9 Sec (25.0-35.0)
[2018-01-17] MEDS: ZOLPIDEM 5 MG TAB PO (20:31)
[2018-01-17] MEDS: ATORVASTATIN 40 MG TAB PO (20:31)
[2018-01-17 23:17] LABS: PARTIAL THROMBOPLASTIN TIME 77.9 Sec (25.0-35.0)
[2018-01-18] MEDS: ALBUTEROL/IPRATROPIUM (NEB) 3 ML AMP HHN ×4 (01:48→19:35)
[2018-01-18] MEDS: ACCU-CHEK XX (02:00)
[2018-01-18] MEDS: HEPARIN 25000 UNITS/250 ML 250 ML IV (03:37)
[2018-01-18] MEDS: PANTOPRAZOLE (EC) 40 MG TAB PO (06:18)
[2018-01-18] MEDS: FUROSEMIDE 40 MG INJ IV ×2 (06:18→17:38)
[2018-01-18 07:57] LABS: PARTIAL THROMBOPLASTIN TIME 80.4 Sec (25.0-35.0)
[2018-01-18] MEDS: INSULIN ASPART [NOVOLOG] 3 ML PEN SC ×4 (08:03→20:19)
[2018-01-18] MEDS: METOPROLOL (XL) 50 MG TAB PO ×2 (09:20→20:20)
[2018-01-18] MEDS: FLUCONAZOLE 200 MG TAB PO (09:20)
[2018-01-18] MEDS: LUBIPROSTONE 24 MCG CAP PO ×2 (09:20→20:14)
[2018-01-18] MEDS: ALPRAZOLAM 0.25 MG TAB PO ×2 (09:20→20:14)
[2018-01-18] MEDS: POTASSIUM CHLORIDE (SR) 8 MEQ CAP PO (09:20)
[2018-01-18] MEDS: OXYBUTYNIN 5 MG TAB PO (09:20)
[2018-01-18] MEDS: ATORVASTATIN 40 MG TAB PO (20:13)
[2018-01-18] MEDS: GUAIFENESIN/DM 5ML CUP PO (20:15)
[2018-01-18] MEDS: ZOLPIDEM 5 MG TAB PO (21:38)
[2018-01-19] MEDS: ALBUTEROL/IPRATROPIUM (NEB) 3 ML AMP HHN ×4 (01:42→20:00)
[2018-01-19] MEDS: ACCU-CHEK XX (02:00)
[2018-01-19] MEDS: PANTOPRAZOLE (EC) 40 MG TAB PO (04:51)
[2018-01-19] MEDS: FUROSEMIDE 40 MG INJ IV ×2 (06:41→18:47)
[2018-01-19] MEDS ORDERED: METOPROLOL 5 MG INJ (07:00)
[2018-01-19 07:17] LABS: ADD MAN DIFF? NO
[2018-01-19 07:23] LABS: BASOPHIL # 0.1 10^3/ul (0.0-0.1); BASOPHILS % 0.7 % (0.0-2.0); EOSINOPHILS # 0.4 10^3/ul (0.0-0.5); EOSINOPHILS % 4.9 % (0.0-7.0); HEMATOCRIT 39.7 % (37.0-47.0); HEMOGLOBIN 12.1 g/dl (12.0-16.0); LYMPHOCYTES # 1.6 10^3/ul (0.8-2.9); LYMPHOCYTES % 19.5 % (15.0-51.0); MEAN CORPUSCULAR HEMOGLOBIN 25.2 pg (29.0-33.0); MEAN CORPUSCULAR HGB CONC 30.5 g/dl (32.0-37.0); MEAN CORPUSCULAR VOLUME 82.7 fl (82.0-101.0); MEAN PLATELET VOLUME 11.8 fl (7.4-10.4); MONOCYTE # 0.6 10^3/ul (0.3-0.9); MONOCYTES % 6.7 % (0.0-11.0); NEUTROPHIL # 5.7 10^3/ul (1.6-7.5); NEUTROPHILS % 67.7 % (39.0-77.0); PLATELET COUNT 302 10^3/UL (140-415); RED CELL DISTRIBUTION WIDTH 13.9 % (11.5-14.5)
[2018-01-19 07:23] LABS: WHITE BLOOD COUNT 8.4 10^3/ul (4.8-10.8)
[2018-01-19 07:31] LABS: PLATELET COUNT 302 10^3/UL (140-415)
[2018-01-19 07:39] LABS: ANION GAP 15 (8-16); BLOOD UREA NITROGEN 14 mg/dl (7-20); CALCIUM 9.8 mg/dl (8.4-10.2); CARBON DIOXIDE 30 mmol/L (21-31); CHLORIDE 97 mmol/L (97-110); CREATININE 0.79 mg/dl (0.44-1.00); GLUCOSE 151 mg/dl (70-220); MAGNESIUM 1.8 mg/dl (1.7-2.5); PHOSPHORUS 3.3 mg/dl (2.5-4.9); POTASSIUM 4.2 mmol/L (3.5-5.1); SODIUM 138 mmol/L (135-144)
[2018-01-19 07:41] LABS: INR 1.05; PROTIME 13.8 Sec (11.9-14.9); PT RATIO 1.1
[2018-01-19 07:42] LABS: PARTIAL THROMBOPLASTIN TIME 31.1 Sec (25.0-35.0)
[2018-01-19 07:45] LABS: THROMBIN TIME 15.8 SEC (13.8-19.1)
[2018-01-19] MEDS: METOPROLOL (XL) 50 MG TAB PO ×3 (08:35→22:28)
[2018-01-19] MEDS: INSULIN ASPART [NOVOLOG] 3 ML PEN SC ×4 (08:36→21:00)
[2018-01-19] MEDS: LUBIPROSTONE 24 MCG CAP PO ×2 (09:00→21:00)
[2018-01-19] MEDS: ALPRAZOLAM 0.25 MG TAB PO ×2 (09:00→21:00)
[2018-01-19] MEDS ORDERED: EPHEDrine SULFATE 50 MG/5 ML SYG IV (11:30)
[2018-01-19] MEDS ORDERED: MEPERIDINE 25 MG INJ IV (11:30)
[2018-01-19] MEDS ORDERED: ALBUTEROL 0.083% (NEB) 2.5 MG/3 ML AMP HHN (11:30)
[2018-01-19] MEDS ORDERED: METOCLOPRAMIDE 10 MG INJ IV (11:30)
[2018-01-19] MEDS ORDERED: LABETALOL HCL 20MG INJ IV (11:30)
[2018-01-19] MEDS ORDERED: HYDROmorphONE 1 MG/5 ML IV SYRINGE IV ×2 (11:30)
[2018-01-19] MEDS ORDERED: DIPHENHYDRAMINE 50 MG INJ IV (11:30)
[2018-01-19] MEDS ORDERED: hydrALAzine 20 MG INJ IV (11:30)
[2018-01-19] MEDS ORDERED: FENTAnyl 50 MCG/ML VIAL IV ×2 (11:30)
[2018-01-19] MEDS ORDERED: ONDANSETRON 4 MG INJ IV (11:30)
[2018-01-19] MEDS ORDERED: PROPOFOL 20 ML (11:33)
[2018-01-19] MEDS ORDERED: SUCCINYLCHOLINE CHLORIDE 100 MG/5 ML SYG IV (11:33)
[2018-01-19] MEDS ORDERED: ROCURONIUM 50 MG INJ (11:33)
[2018-01-19] MEDS ORDERED: CEFAZOLIN 1 GM INJ (11:33)
[2018-01-19] MEDS ORDERED: MIDAZOLAM 1 MG/ML 2 ML INJ (11:33)
[2018-01-19] MEDS ORDERED: FENTAnyl 50 MCG/ML VIAL (11:33)
[2018-01-19] MEDS ORDERED: PHENYLephrine (100 MCG/ML) 5ML SYG (11:40)
[2018-01-19] MEDS: LIDOCAINE 2% (MDV) 20 ML INJ INJ (11:50)
[2018-01-19] MEDS ORDERED: ONDANSETRON 4 MG INJ (11:58)
[2018-01-19] MEDS ORDERED: METOCLOPRAMIDE 10 MG INJ (11:58)
[2018-01-19] MEDS ORDERED: DEXAMETHASONE 4 MG/ML 1 ML INJ (11:58)
[2018-01-19] MEDS ORDERED: NEOSTIGMINE 3 MG/3 ML SYRINGE (11:58)
[2018-01-19] MEDS ORDERED: GLYCOPYRROLATE 0.4 MG INJ (11:58)
[2018-01-19] MEDS ORDERED: LABETALOL HCL 20MG INJ (12:10)
[2018-01-19] MEDS ORDERED: hydrALAzine 20 MG INJ (12:11)
[2018-01-19] MEDS: RACEPINEPHRINE 2.25%(NEB) 0.5 ML AMP HHN (14:23)
[2018-01-19] MEDS: OXYBUTYNIN 5 MG TAB PO (18:42)
[2018-01-19] MEDS: FLUCONAZOLE 200 MG TAB PO (18:43)
[2018-01-19] MEDS: POTASSIUM CHLORIDE (SR) 8 MEQ CAP PO (18:43)
[2018-01-19] MEDS: PHENOL 1.4% SOLN 180 ML BTL MT (20:18)
[2018-01-19] MEDS: ATORVASTATIN 40 MG TAB PO (21:00)
[2018-01-19] MEDS: GUAIFENESIN/DM 5ML CUP PO (22:44)
[2018-01-20] MEDS: ACCU-CHEK XX (00:37)
[2018-01-20] MEDS: PHENOL 1.4% SOLN 180 ML BTL MT ×4 (00:46→18:03)
[2018-01-20] MEDS: ALBUTEROL/IPRATROPIUM (NEB) 3 ML AMP HHN ×3 (01:41→12:59)
[2018-01-20] MEDS: PANTOPRAZOLE (EC) 40 MG TAB PO (06:53)
[2018-01-20] MEDS: FUROSEMIDE 40 MG INJ IV ×2 (06:55→17:18)
[2018-01-20] MEDS: INSULIN ASPART [NOVOLOG] 3 ML PEN SC ×3 (07:25→17:23)
[2018-01-20 07:29] LABS: ADD MAN DIFF? NO
[2018-01-20 07:31] LABS: WHITE BLOOD COUNT 12.9 10^3/ul (4.8-10.8)
[2018-01-20 07:31] LABS: BASOPHILS % 0.2 % (0.0-2.0); HEMOGLOBIN 11.7 g/dl (12.0-16.0); MEAN CORPUSCULAR HEMOGLOBIN 26.1 pg (29.0-33.0); MEAN CORPUSCULAR HGB CONC 31.6 g/dl (32.0-37.0); MEAN CORPUSCULAR VOLUME 82.6 fl (82.0-101.0); MEAN PLATELET VOLUME 11.6 fl (7.4-10.4); MONOCYTE # 0.4 10^3/ul (0.3-0.9); MONOCYTES % 3.1 % (0.0-11.0); NEUTROPHIL # 11.4 10^3/ul (1.6-7.5); NEUTROPHILS % 88.2 % (39.0-77.0); RED BLOOD COUNT 4.48 10^6/ul (4.20-5.40)
[2018-01-20 07:34] LABS: PLATELET COUNT 159 10^3/UL (140-415); POSITIVE DIFF @See below
[2018-01-20 07:56] LABS: ANION GAP 17 (8-16); BLOOD UREA NITROGEN 19 mg/dl (7-20); CALCIUM 9.7 mg/dl (8.4-10.2); CARBON DIOXIDE 27 mmol/L (21-31); CHLORIDE 99 mmol/L (97-110); CREATININE 0.75 mg/dl (0.44-1.00); GLUCOSE 178 mg/dl (70-220); MAGNESIUM 1.8 mg/dl (1.7-2.5); PHOSPHORUS 3.5 mg/dl (2.5-4.9); POTASSIUM 3.7 mmol/L (3.5-5.1); SODIUM 139 mmol/L (135-144)
[2018-01-20] MEDS: METOPROLOL (XL) 50 MG TAB PO (08:32)
[2018-01-20] MEDS: OXYBUTYNIN 5 MG TAB PO (08:32)
[2018-01-20] MEDS: FLUCONAZOLE 200 MG TAB PO (08:32)
[2018-01-20] MEDS: POTASSIUM CHLORIDE (SR) 8 MEQ CAP PO (08:33)
[2018-01-20] MEDS: LUBIPROSTONE 24 MCG CAP PO (08:33)
[2018-01-20] MEDS: ACETAMINOPHEN 325 MG TAB PO (08:36)
[2018-01-20] MEDS ORDERED: hydrALAzine 20 MG INJ IV (11:30)
[2018-01-20] MEDS: ALPRAZOLAM 0.25 MG TAB PO (12:09)
== END 2018-01-20 18:40 | disposition home or self-care (01) | DRG 166 ==
LOC: TEL 01-12 23:02 → E/R 09:37 → TEL 11:31
PROC: 0BBJ8ZX Excision of Left Lower Lung Lobe, Via Natural or Artificial Opening Endoscopic, Diagnostic (ICD-10-PCS; principal; 2018-01-19 11:00)
PROC: 0B9J8ZX Drainage of Left Lower Lung Lobe, Via Natural or Artificial Opening Endoscopic, Diagnostic (ICD-10-PCS; 2018-01-19 11:00)
PROC: 0W9B3ZZ Drainage of Left Pleural Cavity, Percutaneous Approach (ICD-10-PCS; 2018-01-19 11:27)
PROC: 0W9B3ZZ Drainage of Left Pleural Cavity, Percutaneous Approach (ICD-10-PCS; 2018-01-19 11:27)
DX: C34.32 Malignant neoplasm of lower lobe, left bronchus or lung (principal); I50.33 Acute on chronic diastolic (congestive) heart failure; I26.99 Other pulmonary embolism without acute cor pulmonale; J18.9 Pneumonia, unspecified organism; J91.0 Malignant pleural effusion; I13.0 Hypertensive heart and chronic kidney disease with heart failure and stage 1 through stage 4 chronic kidney disease, or unspecified chronic kidney disease; J98.11 Atelectasis; I42.9 Cardiomyopathy, unspecified; E11.22 Type 2 diabetes mellitus with diabetic chronic kidney disease; E78.5 Hyperlipidemia, unspecified; E66.9 Obesity, unspecified; F41.9 Anxiety disorder, unspecified; G47.00 Insomnia, unspecified; G47.33 Obstructive sleep apnea (adult) (pediatric); I48.2 Chronic atrial fibrillation; N18.9 Chronic kidney disease, unspecified; R63.0 Anorexia; Z68.38 Body mass index [BMI] 38.0-38.9, adult; Z86.73 Personal history of transient ischemic attack (TIA), and cerebral infarction without residual deficits; Z86.018 Personal history of other benign neoplasm; Z90.710 Acquired absence of both cervix and uterus; Z95.0 Presence of cardiac pacemaker; Z79.01 Long term (current) use of anticoagulants
CPT/HCPCS: 36415; 71045; 71250; 71260; 74177; 76942; 80048; 80053; 82042; 82378; 82945; 82962; 83605; 83615; 83735; 83986; 84100; 84157; 84443; 84484; 85025; 85049; 85610; 85670; 85730; 86301; 87040; 87070; 87081; 87102; 87116; 88104; 88305; 88307; 88341; 88342; 89051; 93005; 93970; 94640; 94664; 97110; 97116; 97162; 99285-25

== ENCOUNTER 2018-01-25 15:27 | Emergency (ER) | payer MEDICARE, OTHER ==
[2018-01-25] MEDS: SOD CHLORIDE 0.9% 1,000 ML IV ×2 (16:38→18:58)
[2018-01-25] MEDS: ONDANSETRON 4 MG INJ IV (16:45)
[2018-01-25 16:57] LABS: ADD MAN DIFF? NO
[2018-01-25 16:58] LABS: BASOPHILS % 0.3 % (0.0-2.0); EOSINOPHILS # 0.3 10^3/ul (0.0-0.5); EOSINOPHILS % 2.3 % (0.0-7.0); HEMOGLOBIN 13.2 g/dl (12.0-16.0); LYMPHOCYTES # 1.4 10^3/ul (0.8-2.9); LYMPHOCYTES % 10.9 % (15.0-51.0); MEAN CORPUSCULAR HEMOGLOBIN 26.1 pg (29.0-33.0); MEAN CORPUSCULAR HGB CONC 31.4 g/dl (32.0-37.0); MEAN PLATELET VOLUME 11.5 fl (7.4-10.4); MONOCYTE # 0.8 10^3/ul (0.3-0.9); MONOCYTES % 6.3 % (0.0-11.0); NEUTROPHIL # 10.1 10^3/ul (1.6-7.5); NEUTROPHILS % 79.3 % (39.0-77.0); PLATELET COUNT 307 10^3/UL (140-415); RED BLOOD COUNT 5.06 10^6/ul (4.20-5.40); RED CELL DISTRIBUTION WIDTH 14.7 % (11.5-14.5)
[2018-01-25 16:58] LABS: WHITE BLOOD COUNT 12.8 10^3/ul (4.8-10.8)
[2018-01-25 17:21] LABS: LACTIC ACID 1.7 mmol/L (0.5-2.0)
[2018-01-25 17:34] LABS: ALANINE AMINOTRANSFERASE 27 IU/L (13-69); ALBUMIN 4.2 g/dl (3.3-4.9); ALBUMIN/GLOBULIN RATIO 0.97; ALKALINE PHOSPHATASE 114 IU/L (42-121); ANION GAP 17 (8-16); ASPARTATE AMINO TRANSFERASE 29 IU/L (15-46); BILIRUBIN,INDIRECT 0.5 mg/dl (0-1.1); BILIRUBIN,TOTAL 0.5 mg/dl (0.2-1.3); BLOOD UREA NITROGEN 25 mg/dl (7-20); CALCIUM 10.3 mg/dl (8.4-10.2); CARBON DIOXIDE 32 mmol/L (21-31); CHLORIDE 93 mmol/L (97-110); CREATININE 1.07 mg/dl (0.44-1.00); GLUCOSE 182 mg/dl (70-220); LIPASE 165 U/L (23-300); POTASSIUM 3.9 mmol/L (3.5-5.1); SODIUM 138 mmol/L (135-144); TOTAL PROTEIN 8.5 g/dl (6.1-8.1)
[2018-01-25 17:47] LABS: TROPONIN-I < 0.012 ng/ml (0.000-0.120)
[2018-01-25 19:04] LABS: UR BACTERIA FEW /HPF (NONE SEEN); UR NONSQUAMOUS EPITHELIAL CELL 1 /HPF (NONE SEEN); UR RBC 6 /HPF (0-5); UR SQUAMOUS EPITHELIAL CELL FEW /HPF (FEW); UR WBC 7 /HPF (0-5)
[2018-01-25 19:23] LABS: ADD UMIC YES; UR ASCORBIC ACID NEGATIVE (NEGATIVE); UR BILIRUBIN (Dip) NEGATIVE (NEGATIVE); UR BLOOD (Dip) NEGATIVE (NEGATIVE); UR CLARITY SLIGHTLY CLOUDY (CLEAR); UR COLOR YELLOW (YELLOW); UR GLUCOSE (Dip) NEGATIVE (NEGATIVE); UR KETONES (Dip) NEGATIVE (NEGATIVE); UR LEUKOCYTE ESTERASE (Dip) 1+ Leu/ul (NEGATIVE); UR MUCUS FEW /HPF (NONE SEEN); UR NITRITE (Dip) NEGATIVE (NEGATIVE); UR SPECIFIC GRAVITY (Dip) 1.015 (1.003-1.030); UR TOTAL PROTEIN (Dip) NEGATIVE (NEGATIVE); UR UROBILINOGEN (Dip) NEGATIVE (NEGATIVE)
[2018-01-25] MEDS: CEFEPIME 1GM/50 ML (PMX) 50 ML IVPB (19:46)
== END 2018-01-25 22:00 | disposition home or self-care (01) ==
LOC: E/R 15:27
DX: E86.0 Dehydration (principal); N39.0 Urinary tract infection, site not specified; N18.9 Chronic kidney disease, unspecified; E11.22 Type 2 diabetes mellitus with diabetic chronic kidney disease; I12.9 Hypertensive chronic kidney disease with stage 1 through stage 4 chronic kidney disease, or unspecified chronic kidney disease; E66.9 Obesity, unspecified; Z79.01 Long term (current) use of anticoagulants; Z86.73 Personal history of transient ischemic attack (TIA), and cerebral infarction without residual deficits; Z95.0 Presence of cardiac pacemaker; Z79.84 Long term (current) use of oral hypoglycemic drugs
CPT/HCPCS: 36415; 71045; 80053; 81001; 83605; 83690; 84484; 85025; 93005; 96374; 96375; 99285-25

== ENCOUNTER 2018-01-28 17:36 | Inpatient (IN) | payer MEDICARE, OTHER ==
[2018-01-28 19:48] LABS: ADD MAN DIFF? NO
[2018-01-28] MEDS: SOD CHLORIDE 0.9% 1,000 ML IV (19:53)
[2018-01-28] MEDS: ONDANSETRON 4 MG INJ IV (19:53)
[2018-01-28] MEDS: CEFTRIAXONE 1 GM/50 ML (PMX) 50 ML IVPB (19:53)
[2018-01-28 19:55] LABS: BASOPHIL # 0.1 10^3/ul (0.0-0.1); BASOPHILS % 0.6 % (0.0-2.0); EOSINOPHILS # 0.4 10^3/ul (0.0-0.5); EOSINOPHILS % 3.1 % (0.0-7.0); HEMATOCRIT 39.3 % (37.0-47.0); HEMOGLOBIN 12.3 g/dl (12.0-16.0); LYMPHOCYTES # 1.9 10^3/ul (0.8-2.9); LYMPHOCYTES % 14.3 % (15.0-51.0); MEAN CORPUSCULAR HEMOGLOBIN 25.9 pg (29.0-33.0); MEAN CORPUSCULAR HGB CONC 31.3 g/dl (32.0-37.0); MEAN CORPUSCULAR VOLUME 82.9 fl (82.0-101.0); MEAN PLATELET VOLUME 11.4 fl (7.4-10.4); MONOCYTE # 0.9 10^3/ul (0.3-0.9); NEUTROPHIL # 9.6 10^3/ul (1.6-7.5); NEUTROPHILS % 73.9 % (39.0-77.0); PLATELET COUNT 330 10^3/UL (140-415); RED BLOOD COUNT 4.74 10^6/ul (4.20-5.40); RED CELL DISTRIBUTION WIDTH 14.8 % (11.5-14.5)
[2018-01-28 19:55] LABS: WHITE BLOOD COUNT 13.1 10^3/ul (4.8-10.8)
[2018-01-28 20:11] LABS: LACTIC ACID 1.4 mmol/L (0.5-2.0)
[2018-01-28 20:13] LABS: ALANINE AMINOTRANSFERASE 24 IU/L (13-69); ALBUMIN/GLOBULIN RATIO 0.93; ALKALINE PHOSPHATASE 103 IU/L (42-121); ANION GAP 17 (8-16); ASPARTATE AMINO TRANSFERASE 30 IU/L (15-46); BILIRUBIN,INDIRECT 1.6 mg/dl (0-1.1); BILIRUBIN,TOTAL 1.6 mg/dl (0.2-1.3); BLOOD UREA NITROGEN 20 mg/dl (7-20); CALCIUM 9.9 mg/dl (8.4-10.2); CARBON DIOXIDE 31 mmol/L (21-31); CHLORIDE 91 mmol/L (97-110); CREATININE 0.82 mg/dl (0.44-1.00); GLUCOSE 155 mg/dl (70-220); POTASSIUM 4.1 mmol/L (3.5-5.1); SODIUM 135 mmol/L (135-144); TOTAL PROTEIN 8.3 g/dl (6.1-8.1)
[2018-01-28 20:14] LABS: INR 1.85; PROTIME 21.8 Sec (11.9-14.9); PT RATIO 1.7
[2018-01-28 20:24] LABS: TROPONIN-I < 0.012 ng/ml (0.000-0.120)
[2018-01-28] MEDS ORDERED: ACETAMINOPHEN 325 MG TAB PO ×2 (21:30→23:30)
[2018-01-28] MEDS ORDERED: ONDANSETRON 4 MG INJ IV ×2 (21:30→23:30)
[2018-01-28 21:41] LABS: LACTIC ACID 1.4 mmol/L (0.5-2.0)
[2018-01-28] MEDS ORDERED: GLUCOSE GEL 15 GRAM TUBE BUCCAL (23:45)
[2018-01-28] MEDS ORDERED: GLUCOSE GEL 15 GRAM TUBE PO ×2 (23:45)
[2018-01-28] MEDS ORDERED: DEXTROSE 50% 50 ML SYRINGE IV ×2 (23:45)
[2018-01-28] MEDS ORDERED: GLUCAGON 1 MG INJ IM (23:45)
[2018-01-29] MEDS ORDERED: METOCLOPRAMIDE 10 MG INJ IV ×2 (00:30)
[2018-01-29] MEDS: ACCU-CHEK XX (01:08)
[2018-01-29 03:07] LABS: LACTIC ACID 1.1 mmol/L (0.5-2.0)
[2018-01-29] MEDS: INSULIN ASPART [NOVOLOG] 3 ML PEN SC ×4 (08:00→20:24)
[2018-01-29 08:02] LABS: ADD MAN DIFF? NO
[2018-01-29 08:16] LABS: WHITE BLOOD COUNT 10.7 10^3/ul (4.8-10.8)
[2018-01-29 08:16] LABS: BASOPHIL # 0.1 10^3/ul (0.0-0.1); BASOPHILS % 0.7 % (0.0-2.0); EOSINOPHILS # 0.5 10^3/ul (0.0-0.5); EOSINOPHILS % 4.7 % (0.0-7.0); HEMATOCRIT 35.8 % (37.0-47.0); HEMOGLOBIN 11.3 g/dl (12.0-16.0); LYMPHOCYTES # 1.6 10^3/ul (0.8-2.9); LYMPHOCYTES % 15.3 % (15.0-51.0); MEAN CORPUSCULAR HEMOGLOBIN 26.2 pg (29.0-33.0); MEAN CORPUSCULAR HGB CONC 31.6 g/dl (32.0-37.0); MEAN CORPUSCULAR VOLUME 83.1 fl (82.0-101.0); MEAN PLATELET VOLUME 12.1 fl (7.4-10.4); MONOCYTE # 0.8 10^3/ul (0.3-0.9); MONOCYTES % 7.6 % (0.0-11.0); NEUTROPHIL # 7.6 10^3/ul (1.6-7.5); NEUTROPHILS % 70.6 % (39.0-77.0); PLATELET COUNT 318 10^3/UL (140-415); RED BLOOD COUNT 4.31 10^6/ul (4.20-5.40); RED CELL DISTRIBUTION WIDTH 15.1 % (11.5-14.5)
[2018-01-29 08:46] LABS: ALANINE AMINOTRANSFERASE 22 IU/L (13-69); ALBUMIN 3.5 g/dl (3.3-4.9); ALBUMIN/GLOBULIN RATIO 0.97; ALKALINE PHOSPHATASE 83 IU/L (42-121); ANION GAP 14 (8-16); ASPARTATE AMINO TRANSFERASE 43 IU/L (15-46); BILIRUBIN,INDIRECT 1.2 mg/dl (0-1.1); BILIRUBIN,TOTAL 1.2 mg/dl (0.2-1.3); BLOOD UREA NITROGEN 17 mg/dl (7-20); CALCIUM 9.2 mg/dl (8.4-10.2); CARBON DIOXIDE 29 mmol/L (21-31); CHLORIDE 96 mmol/L (97-110); CREATININE 0.64 mg/dl (0.44-1.00); GLUCOSE 130 mg/dl (70-220); POTASSIUM 3.6 mmol/L (3.5-5.1); SODIUM 135 mmol/L (135-144); TOTAL PROTEIN 7.1 g/dl (6.1-8.1)
[2018-01-29] MEDS ORDERED: NON-FORMULARY/PATIENT OWN MED (Digoxin* (Digitek*) 0.125 MG) PO (09:00)
[2018-01-29] MEDS: OXYBUTYNIN 5 MG TAB PO (09:20)
[2018-01-29] MEDS: APIXABAN 5 MG TABLET PO ×2 (09:20→20:23)
[2018-01-29] MEDS: POTASSIUM CHLORIDE (SR) 8 MEQ CAP PO (09:20)
[2018-01-29] MEDS: METOPROLOL (XL) 50 MG TAB PO ×2 (09:21→20:24)
[2018-01-29] MEDS: DIGOXIN 0.125 MG TAB PO (12:51)
[2018-01-29 18:38] LABS: LIPASE 171 U/L (23-300)
[2018-01-29] MEDS: CEFTRIAXONE 1 GM/50 ML (PMX) 50 ML IVPB (20:23)
[2018-01-29] MEDS: ATORVASTATIN 40 MG TAB PO (20:23)
[2018-01-29] MEDS: BISACODYL 10 MG SUPP PR (20:26)
[2018-01-30] MEDS: ACCU-CHEK XX (01:44)
[2018-01-30] MEDS: PANTOPRAZOLE 40 MG INJ IV (05:55)
[2018-01-30] MEDS: INSULIN ASPART [NOVOLOG] 3 ML PEN SC ×4 (09:07→20:57)
[2018-01-30] MEDS: POTASSIUM CHLORIDE (SR) 8 MEQ CAP PO (09:12)
[2018-01-30] MEDS: OXYBUTYNIN 5 MG TAB PO (09:12)
[2018-01-30] MEDS: APIXABAN 5 MG TABLET PO ×2 (09:12→20:51)
[2018-01-30] MEDS: METOPROLOL (XL) 50 MG TAB PO ×2 (09:13→20:51)
[2018-01-30 10:25] LABS: ADD UMIC NO; UR ASCORBIC ACID NEGATIVE (NEGATIVE); UR BACTERIA FEW /HPF (NONE SEEN); UR BILIRUBIN (Dip) NEGATIVE (NEGATIVE); UR BLOOD (Dip) NEGATIVE (NEGATIVE); UR CLARITY SLIGHTLY CLOUDY (CLEAR); UR COLOR YELLOW (YELLOW); UR GLUCOSE (Dip) NEGATIVE (NEGATIVE); UR KETONES (Dip) TRACE mg/dL (NEGATIVE); UR LEUKOCYTE ESTERASE (Dip) NEGATIVE Leu/ul (NEGATIVE); UR NITRITE (Dip) NEGATIVE (NEGATIVE); UR RBC 3 /HPF (0-5); UR SPECIFIC GRAVITY (Dip) 1.018 (1.003-1.030); UR SQUAMOUS EPITHELIAL CELL MODERATE /HPF (FEW); UR TOTAL PROTEIN (Dip) NEGATIVE (NEGATIVE); UR UROBILINOGEN (Dip) NEGATIVE (NEGATIVE); UR WBC 9 /HPF (0-5)
[2018-01-30] MEDS ORDERED: BISACODYL 10 MG SUPP PR (11:30)
[2018-01-30] MEDS: MUPIROCIN 2% 22 GM OINT TOP ×2 (12:35→20:58)
[2018-01-30] MEDS: DOCUSATE SODIUM 100 MG CAP PO (12:36)
[2018-01-30] MEDS: DIGOXIN 0.125 MG TAB PO (12:37)
[2018-01-30] MEDS: ATORVASTATIN 40 MG TAB PO (20:51)
[2018-01-30] MEDS: CEFTRIAXONE 1 GM/50 ML (PMX) 50 ML IVPB (20:51)
[2018-01-31] MEDS: BISACODYL 10 MG SUPP PR (00:57)
[2018-01-31] MEDS: ACCU-CHEK XX (02:58)
[2018-01-31] MEDS: PANTOPRAZOLE 40 MG INJ IV (05:46)
[2018-01-31 06:53] LABS: ANION GAP 13 (8-16); BLOOD UREA NITROGEN 13 mg/dl (7-20); CALCIUM 9.6 mg/dl (8.4-10.2); CARBON DIOXIDE 33 mmol/L (21-31); CHLORIDE 98 mmol/L (97-110); CREATININE 0.64 mg/dl (0.44-1.00); GLUCOSE 137 mg/dl (70-220); POTASSIUM 3.6 mmol/L (3.5-5.1); SODIUM 140 mmol/L (135-144)
[2018-01-31] MEDS: APIXABAN 5 MG TABLET PO ×2 (09:27→20:24)
[2018-01-31] MEDS: POLYETHYLENE GLYCOL 17 GM PACKET PO (09:27)
[2018-01-31] MEDS: OXYBUTYNIN 5 MG TAB PO (09:27)
[2018-01-31] MEDS: POTASSIUM CHLORIDE (SR) 8 MEQ CAP PO (09:27)
[2018-01-31] MEDS: METOPROLOL (XL) 50 MG TAB PO ×2 (09:28→20:25)
[2018-01-31] MEDS: MUPIROCIN 2% 22 GM OINT TOP ×2 (09:28→20:33)
[2018-01-31] MEDS: INSULIN ASPART [NOVOLOG] 3 ML PEN SC ×4 (09:31→20:33)
[2018-01-31] MEDS: MAGNESIUM CITRATE 300 ML BTL PO (13:40)
[2018-01-31] MEDS: DIGOXIN 0.125 MG TAB PO (13:42)
[2018-01-31] MEDS: METOCLOPRAMIDE 10 MG INJ IV ×2 (18:30→23:49)
[2018-01-31] MEDS: DOCUSATE SODIUM 100 MG CAP PO (20:24)
[2018-01-31] MEDS: ATORVASTATIN 40 MG TAB PO (20:24)
[2018-01-31] MEDS: CEFTRIAXONE 1 GM/50 ML (PMX) 50 ML IVPB (20:25)
[2018-02-01] MEDS: ACCU-CHEK XX (01:33)
[2018-02-01 05:45] LABS: ADD MAN DIFF? NO
[2018-02-01 05:51] LABS: BASOPHIL # 0.1 10^3/ul (0.0-0.1); BASOPHILS % 0.6 % (0.0-2.0); EOSINOPHILS # 0.5 10^3/ul (0.0-0.5); EOSINOPHILS % 4.7 % (0.0-7.0); HEMOGLOBIN 10.6 g/dl (12.0-16.0); LYMPHOCYTES # 1.7 10^3/ul (0.8-2.9); LYMPHOCYTES % 17.6 % (15.0-51.0); MEAN CORPUSCULAR HEMOGLOBIN 25.9 pg (29.0-33.0); MEAN CORPUSCULAR HGB CONC 31.2 g/dl (32.0-37.0); MEAN CORPUSCULAR VOLUME 83.1 fl (82.0-101.0); MEAN PLATELET VOLUME 11.6 fl (7.4-10.4); MONOCYTE # 0.8 10^3/ul (0.3-0.9); MONOCYTES % 8.2 % (0.0-11.0); NEUTROPHIL # 6.7 10^3/ul (1.6-7.5); NEUTROPHILS % 68.4 % (39.0-77.0); PLATELET COUNT 286 10^3/UL (140-415); RED BLOOD COUNT 4.09 10^6/ul (4.20-5.40); RED CELL DISTRIBUTION WIDTH 15.6 % (11.5-14.5)
[2018-02-01 05:51] LABS: WHITE BLOOD COUNT 9.9 10^3/ul (4.8-10.8)
[2018-02-01] MEDS: PANTOPRAZOLE (EC) 40 MG TAB PO (06:01)
[2018-02-01] MEDS: METOCLOPRAMIDE 10 MG INJ IV ×4 (06:01→23:36)
[2018-02-01 06:29] LABS: ANION GAP 13 (8-16); BLOOD UREA NITROGEN 12 mg/dl (7-20); CALCIUM 9.5 mg/dl (8.4-10.2); CARBON DIOXIDE 35 mmol/L (21-31); CHLORIDE 98 mmol/L (97-110); CREATININE 0.63 mg/dl (0.44-1.00); GLUCOSE 137 mg/dl (70-220); POTASSIUM 3.9 mmol/L (3.5-5.1); SODIUM 142 mmol/L (135-144)
[2018-02-01] MEDS: OXYBUTYNIN 5 MG TAB PO (08:34)
[2018-02-01] MEDS: POTASSIUM CHLORIDE (SR) 8 MEQ CAP PO (08:34)
[2018-02-01] MEDS: APIXABAN 5 MG TABLET PO ×2 (08:34→20:41)
[2018-02-01] MEDS: ERGOCALCIFEROL 50,000 UNIT CAP PO (08:34)
[2018-02-01] MEDS: MUPIROCIN 2% 22 GM OINT TOP ×2 (08:35→20:41)
[2018-02-01] MEDS: METOPROLOL (XL) 50 MG TAB PO ×2 (08:35→20:41)
[2018-02-01] MEDS: INSULIN ASPART [NOVOLOG] 3 ML PEN SC ×4 (08:39→20:51)
[2018-02-01] MEDS: DIGOXIN 0.125 MG TAB PO (12:37)
[2018-02-01] MEDS: CEFTRIAXONE 1 GM/50 ML (PMX) 50 ML IVPB (20:40)
[2018-02-01] MEDS: ATORVASTATIN 40 MG TAB PO (20:40)
[2018-02-01] MEDS: LUBIPROSTONE 24 MCG CAP PO (20:40)
[2018-02-02] MEDS: ACCU-CHEK XX (01:27)
[2018-02-02] MEDS: METOCLOPRAMIDE 10 MG INJ IV ×2 (05:23→12:57)
[2018-02-02] MEDS: PANTOPRAZOLE (EC) 40 MG TAB PO (05:23)
[2018-02-02] MEDS: INSULIN ASPART [NOVOLOG] 3 ML PEN SC ×2 (08:18→12:51)
[2018-02-02] MEDS: LUBIPROSTONE 24 MCG CAP PO (09:33)
[2018-02-02] MEDS: METOPROLOL (XL) 50 MG TAB PO (09:34)
[2018-02-02] MEDS: OXYBUTYNIN 5 MG TAB PO (09:34)
[2018-02-02] MEDS: APIXABAN 5 MG TABLET PO (09:34)
[2018-02-02] MEDS: POTASSIUM CHLORIDE (SR) 8 MEQ CAP PO (09:34)
[2018-02-02] MEDS: MUPIROCIN 2% 22 GM OINT TOP (09:34)
[2018-02-02] MEDS: DIGOXIN 0.125 MG TAB PO (12:57)
== END 2018-02-02 15:55 | disposition home or self-care (01) | DRG 690 ==
LOC: E/R 17:36 → 2NE 21:28
DX: N39.0 Urinary tract infection, site not specified (principal); J91.0 Malignant pleural effusion; I48.2 Chronic atrial fibrillation; E11.22 Type 2 diabetes mellitus with diabetic chronic kidney disease; E11.43 Type 2 diabetes mellitus with diabetic autonomic (poly)neuropathy; E86.0 Dehydration; K31.84 Gastroparesis; C80.1 Malignant (primary) neoplasm, unspecified; B95.2 Enterococcus as the cause of diseases classified elsewhere; E66.9 Obesity, unspecified; G40.909 Epilepsy, unspecified, not intractable, without status epilepticus; R11.2 Nausea with vomiting, unspecified; K59.00 Constipation, unspecified; I12.9 Hypertensive chronic kidney disease with stage 1 through stage 4 chronic kidney disease, or unspecified chronic kidney disease; N18.9 Chronic kidney disease, unspecified; E78.5 Hyperlipidemia, unspecified; Z79.4 Long term (current) use of insulin; Z68.35 Body mass index [BMI] 35.0-35.9, adult; Z86.73 Personal history of transient ischemic attack (TIA), and cerebral infarction without residual deficits; Z90.710 Acquired absence of both cervix and uterus; Z95.0 Presence of cardiac pacemaker; Z86.711 Personal history of pulmonary embolism; Z79.02 Long term (current) use of antithrombotics/antiplatelets
CPT/HCPCS: 36415; 71045; 74018; 80048; 80053; 81001; 81003; 82652; 82962; 83605; 83690; 84484; 85025; 85610; 85730; 87040; 87081; 87086; 93005; 96374; 96375; 99285-25

== ENCOUNTER 2018-03-16 11:25 | Inpatient (IN) | payer MEDICARE, OTHER ==
[2018-03-16 12:31] LABS: ADD MAN DIFF? NO
[2018-03-16 12:39] LABS: WHITE BLOOD COUNT 8.2 10^3/ul (4.8-10.8)
[2018-03-16 12:39] LABS: BASOPHIL # 0.1 10^3/ul (0.0-0.1); BASOPHILS % 0.9 % (0.0-2.0); EOSINOPHILS # 0.7 10^3/ul (0.0-0.5); EOSINOPHILS % 8.6 % (0.0-7.0); HEMATOCRIT 36.6 % (37.0-47.0); HEMOGLOBIN 11.3 g/dl (12.0-16.0); LYMPHOCYTES # 0.9 10^3/ul (0.8-2.9); LYMPHOCYTES % 10.7 % (15.0-51.0); MEAN CORPUSCULAR HEMOGLOBIN 25.9 pg (29.0-33.0); MEAN CORPUSCULAR HGB CONC 30.9 g/dl (32.0-37.0); MEAN CORPUSCULAR VOLUME 83.9 fl (82.0-101.0); MEAN PLATELET VOLUME 10.5 fl (7.4-10.4); MONOCYTE # 0.8 10^3/ul (0.3-0.9); MONOCYTES % 9.5 % (0.0-11.0); NEUTROPHIL # 5.6 10^3/ul (1.6-7.5); NEUTROPHILS % 68.4 % (39.0-77.0); PLATELET COUNT 351 10^3/UL (140-415); RED BLOOD COUNT 4.36 10^6/ul (4.20-5.40); RED CELL DISTRIBUTION WIDTH 16.9 % (11.5-14.5)
[2018-03-16] MEDS: SODIUM CHLORIDE 0.9% 1L BAG IV* (12:43)
[2018-03-16] MEDS: CEFTRIAXONE 1 GM/50 ML (PMX) 50 ML IVPB (12:44)
[2018-03-16] MEDS: DILTIAZEM 25 MG INJ IV (12:48)
[2018-03-16 12:56] LABS: LACTIC ACID 1.6 mmol/L (0.5-2.0)
[2018-03-16 12:56] LABS: INR 1.43; PROTIME 17.7 Sec (11.9-14.9); PT RATIO 1.4
[2018-03-16 13:10] LABS: ALANINE AMINOTRANSFERASE 17 IU/L (13-69); ALBUMIN 3.2 g/dl (3.3-4.9); ALKALINE PHOSPHATASE 186 IU/L (42-121); ANION GAP 9 (8-16); ASPARTATE AMINO TRANSFERASE 28 IU/L (15-46); BILIRUBIN,INDIRECT 0.5 mg/dl (0-1.1); BILIRUBIN,TOTAL 0.5 mg/dl (0.2-1.3); BLOOD UREA NITROGEN 11 mg/dl (7-20); CALCIUM 9.3 mg/dl (8.4-10.2); CARBON DIOXIDE 37 mmol/L (21-31); CHLORIDE 97 mmol/L (97-110); CREATINE KINASE 29 IU/L (23-200); CREATININE 0.53 mg/dl (0.44-1.00); GLUCOSE 126 mg/dl (70-220); SODIUM 140 mmol/L (135-144); TOTAL PROTEIN 6.4 g/dl (6.1-8.1)
[2018-03-16 13:11] LABS: ACETAMINOPHEN < 10.0 ug/ml (10.0-30.0); ETHANOL < 10.0 mg/dl; SALICYLATE < 1.0 mg/dl (5.0-30.0)
[2018-03-16 13:13] LABS: POTASSIUM 2.9 mmol/L (3.5-5.1)
[2018-03-16 13:21] LABS: CK INDEX 6.3; CK-MB 1.83 ng/ml (0.0-2.4)
[2018-03-16 13:26] LABS: ADD UMIC YES; UR ASCORBIC ACID NEGATIVE (NEGATIVE); UR BACTERIA FEW /HPF (NONE SEEN); UR BILIRUBIN (Dip) NEGATIVE (NEGATIVE); UR BLOOD (Dip) 1+ mg/dL (NEGATIVE); UR CLARITY CLOUDY (CLEAR); UR COLOR AMBER (YELLOW); UR GLUCOSE (Dip) NEGATIVE (NEGATIVE); UR KETONES (Dip) 1+ mg/dL (NEGATIVE); UR LEUKOCYTE ESTERASE (Dip) 1+ Leu/ul (NEGATIVE); UR MUCUS FEW /HPF (NONE SEEN); UR NITRITE (Dip) NEGATIVE (NEGATIVE); UR RBC 15 /HPF (0-5); UR SPECIFIC GRAVITY (Dip) 1.021 (1.003-1.030); UR TOTAL PROTEIN (Dip) 1+ mg/dl (NEGATIVE); UR UROBILINOGEN (Dip) 2+ mg/dL (NEGATIVE); UR WBC 87 /HPF (0-5)
[2018-03-16 13:39] LABS: AMPHETAMINE/METHAMPHETAMINE Negative (NEGATIVE); BARBITURATES Negative (NEGATIVE); BENZODIAZEPINES Negative (NEGATIVE); CANNABINOIDS Positive (NEGATIVE); COCAINE Negative (NEGATIVE); OPIATES Negative (NEGATIVE)
[2018-03-16 14:18] LABS: FREE THYROXINE INDEX (Calc) 3.49 ug/ml (0.65-3.89); T3 UPTAKE 43.6 % (23.5-40.5)
[2018-03-16] MEDS ORDERED: ACETAMINOPHEN 325 MG TAB PO (14:30)
[2018-03-16] MEDS ORDERED: LIDOCAINE 1% (MPF) 5 ML VIAL SC (14:30)
[2018-03-16] MEDS ORDERED: ONDANSETRON 4 MG INJ IV (14:30)
[2018-03-16] MEDS ORDERED: NS + KCL 20 MEQ 1,000 ML IV (16:39)
[2018-03-16] MEDS: LIDOCAINE 1% (MPF) 5 ML VIAL SC (16:55)
[2018-03-16] MEDS ORDERED: NACL 0.9% 3 ML SYG IV (17:00)
[2018-03-16] MEDS: POTASSIUM CHLORIDE 100 ML IVPB ×2 (17:33→23:09)
[2018-03-16] MEDS: DILTIAZEM-D5W 125MG/125ML DRIP 125 ML IV (18:02)
[2018-03-16] MEDS ORDERED: morphine 2 MG INJ (18:36)
[2018-03-16] MEDS: morphine 2 MG INJ IV ×2 (18:46→23:07)
[2018-03-16 20:00] LABS: LACTIC ACID 1.6 mmol/L (0.5-2.0)
[2018-03-16] MEDS: ENOXAPARIN 80 MG/0.8 ML SYG SC (22:04)
[2018-03-16] MEDS ORDERED: LORAZEPAM 2 MG INJ IV (22:30)
[2018-03-16] MEDS: POTASSIUM CHLORIDE 20 MEQ in DEXTROSE 5%-0.45% NACL 1,000 ML IV (23:09)
[2018-03-16 23:38] LABS: LACTIC ACID 1.7 mmol/L (0.5-2.0)
[2018-03-17] MEDS: PANTOPRAZOLE 40 MG INJ IV (05:48)
[2018-03-17 06:25] LABS: ADD MAN DIFF? NO
[2018-03-17 06:36] LABS: WHITE BLOOD COUNT 8.5 10^3/ul (4.8-10.8)
[2018-03-17 06:36] LABS: BASOPHIL # 0.1 10^3/ul (0.0-0.1); BASOPHILS % 1.2 % (0.0-2.0); EOSINOPHILS # 0.7 10^3/ul (0.0-0.5); EOSINOPHILS % 8.5 % (0.0-7.0); HEMATOCRIT 33.8 % (37.0-47.0); HEMOGLOBIN 10.2 g/dl (12.0-16.0); LYMPHOCYTES # 0.9 10^3/ul (0.8-2.9); LYMPHOCYTES % 10.3 % (15.0-51.0); MEAN CORPUSCULAR HEMOGLOBIN 25.8 pg (29.0-33.0); MEAN CORPUSCULAR HGB CONC 30.2 g/dl (32.0-37.0); MEAN CORPUSCULAR VOLUME 85.6 fl (82.0-101.0); MEAN PLATELET VOLUME 11.2 fl (7.4-10.4); MONOCYTE # 0.7 10^3/ul (0.3-0.9); MONOCYTES % 8.7 % (0.0-11.0); NEUTROPHIL # 5.8 10^3/ul (1.6-7.5); NEUTROPHILS % 69.1 % (39.0-77.0); PLATELET COUNT 317 10^3/UL (140-415); RED BLOOD COUNT 3.95 10^6/ul (4.20-5.40)
[2018-03-17 07:03] LABS: ALBUMIN 2.8 g/dl (3.3-4.9); ALBUMIN/GLOBULIN RATIO 0.96; ALKALINE PHOSPHATASE 157 IU/L (42-121); ANION GAP 10 (8-16); ASPARTATE AMINO TRANSFERASE 28 IU/L (15-46); BILIRUBIN,INDIRECT 0.4 mg/dl (0-1.1); BILIRUBIN,TOTAL 0.4 mg/dl (0.2-1.3); BLOOD UREA NITROGEN 8 mg/dl (7-20); CALCIUM 8.9 mg/dl (8.4-10.2); CARBON DIOXIDE 33 mmol/L (21-31); CHLORIDE 102 mmol/L (97-110); CREATININE 0.45 mg/dl (0.44-1.00); GLUCOSE 125 mg/dl (70-220); MAGNESIUM 1.7 mg/dl (1.7-2.5); POTASSIUM 3.5 mmol/L (3.5-5.1); SODIUM 141 mmol/L (135-144); TOTAL PROTEIN 5.7 g/dl (6.1-8.1)
[2018-03-17 07:32] LABS: HEMOGLOBIN A1C 6.1 % (0-5.9)
[2018-03-17 07:53] LABS: ALANINE AMINOTRANSFERASE 29 IU/L (13-69)
[2018-03-17] MEDS: CEFTRIAXONE 1 GM/50 ML (PMX) 50 ML IVPB (08:13)
[2018-03-17] MEDS: ENOXAPARIN 80 MG/0.8 ML SYG SC ×2 (08:21→21:29)
[2018-03-17] MEDS: ONDANSETRON 4 MG INJ IV ×2 (08:38→16:02)
[2018-03-17] MEDS: morphine 2 MG INJ IV ×3 (08:54→22:29)
[2018-03-17] MEDS: METOCLOPRAMIDE 10 MG INJ IV ×2 (12:22→18:02)
[2018-03-17] MEDS: DIGOXIN 0.125 MG TAB PO (12:23)
[2018-03-17] MEDS ORDERED: GLUCOSE GEL 15 GRAM TUBE PO ×2 (13:30)
[2018-03-17] MEDS ORDERED: DEXTROSE 50% 50 ML SYRINGE IV ×2 (13:30)
[2018-03-17] MEDS ORDERED: GLUCAGON 1 MG INJ IM (13:30)
[2018-03-17] MEDS ORDERED: GLUCOSE GEL 15 GRAM TUBE BUCCAL (13:30)
[2018-03-17] MEDS: POTASSIUM CHLORIDE 20 MEQ in DEXTROSE 5%-0.45% NACL 1,000 ML IV (16:38)
[2018-03-17] MEDS: INSULIN ASPART [NOVOLOG] 3 ML PEN SC ×2 (18:00→21:00)
[2018-03-17] MEDS: METOPROLOL (XL) 50 MG TAB PO (21:05)
[2018-03-17] MEDS: ACCU-CHEK XX (21:30)
[2018-03-18] MEDS: METOCLOPRAMIDE 10 MG INJ IV ×2 (00:30→05:40)
[2018-03-18] MEDS ORDERED: D5W-0.45 NACL + KCL 20 MEQ 1,000 ML IV (03:47)
[2018-03-18] MEDS: POTASSIUM CHLORIDE 20 MEQ in DEXTROSE 5%-0.45% NACL 1,000 ML IV (03:49)
[2018-03-18] MEDS: PANTOPRAZOLE 40 MG INJ IV (05:40)
[2018-03-18 06:02] LABS: ADD MAN DIFF? NO
[2018-03-18 06:04] LABS: WHITE BLOOD COUNT 8.3 10^3/ul (4.8-10.8)
[2018-03-18 06:04] LABS: BASOPHIL # 0.1 10^3/ul (0.0-0.1); EOSINOPHILS # 0.6 10^3/ul (0.0-0.5); EOSINOPHILS % 7.4 % (0.0-7.0); HEMATOCRIT 33.4 % (37.0-47.0); HEMOGLOBIN 10.1 g/dl (12.0-16.0); LYMPHOCYTES # 1.1 10^3/ul (0.8-2.9); LYMPHOCYTES % 12.7 % (15.0-51.0); MEAN CORPUSCULAR HEMOGLOBIN 25.7 pg (29.0-33.0); MEAN CORPUSCULAR HGB CONC 30.2 g/dl (32.0-37.0); MEAN PLATELET VOLUME 11.3 fl (7.4-10.4); MONOCYTE # 0.8 10^3/ul (0.3-0.9); MONOCYTES % 9.6 % (0.0-11.0); NEUTROPHIL # 5.5 10^3/ul (1.6-7.5); NEUTROPHILS % 66.2 % (39.0-77.0); NUCLEATED RED BLOOD CELLS% 0.2 /100WBC (0.0-0.0); PLATELET COUNT 310 10^3/UL (140-415); RED BLOOD COUNT 3.93 10^6/ul (4.20-5.40); RED CELL DISTRIBUTION WIDTH 16.8 % (11.5-14.5)
[2018-03-18] MEDS: morphine 2 MG INJ IV ×4 (06:40→21:05)
[2018-03-18 07:00] LABS: MAGNESIUM 1.7 mg/dl (1.7-2.5)
[2018-03-18 07:00] LABS: PHOSPHORUS 2.2 mg/dl (2.5-4.9)
[2018-03-18 07:03] LABS: ANION GAP 5 (8-16); BLOOD UREA NITROGEN 7 mg/dl (7-20); CALCIUM 9.4 mg/dl (8.4-10.2); CARBON DIOXIDE 37 mmol/L (21-31); CHLORIDE 100 mmol/L (97-110); CREATININE 0.49 mg/dl (0.44-1.00); GLUCOSE 125 mg/dl (70-220); POTASSIUM 3.8 mmol/L (3.5-5.1); SODIUM 138 mmol/L (135-144)
[2018-03-18] MEDS: INSULIN ASPART [NOVOLOG] 3 ML PEN SC ×4 (08:00→21:00)
[2018-03-18] MEDS: CEFTRIAXONE 1 GM/50 ML (PMX) 50 ML IVPB (08:32)
[2018-03-18] MEDS: ZINC SULFATE 220 MG CAP PO (08:32)
[2018-03-18] MEDS: FUROSEMIDE 40 MG TAB PO (08:33)
[2018-03-18] MEDS: METOPROLOL (XL) 50 MG TAB PO ×2 (08:33→21:00)
[2018-03-18] MEDS: ENOXAPARIN 80 MG/0.8 ML SYG SC ×2 (08:47→21:02)
[2018-03-18] MEDS: MEGESTROL (40 MG/ML) 10ML CUP PO ×2 (10:52→21:00)
[2018-03-18] MEDS: ONDANSETRON 4 MG INJ IV (11:01)
[2018-03-18] MEDS: ZOLEDRONIC ACID 4 MG in SOD CHLORIDE 0.9% 100 ML IVPB (11:02)
[2018-03-18] MEDS: NEUTRA-PHOS 250 MG PACKET PO (11:02)
[2018-03-18] MEDS: DIGOXIN 0.125 MG TAB PO (13:46)
[2018-03-18] MEDS: ACETAMINOPHEN 1000MG/100ML IV 100 ML IVPB ×2 (14:19→20:57)
[2018-03-18] MEDS: METHADONE (1 MG/1 ML PO SYG) PO (21:00)
[2018-03-18] MEDS ORDERED: METHADONE (1 MG/ML 5 ML PO UD SYG) PO (21:00)
[2018-03-19] MEDS: morphine 2 MG INJ IV ×4 (00:23→12:40)
[2018-03-19] MEDS: ACCU-CHEK XX (02:00)
[2018-03-19] MEDS: LORAZEPAM 2 MG INJ IV (02:43)
[2018-03-19] MEDS: ACETAMINOPHEN 1000MG/100ML IV 100 ML IVPB ×4 (02:44→20:42)
[2018-03-19] MEDS: D5W-0.45 NACL + KCL 20 MEQ 1,000 ML IV (02:48)
[2018-03-19] MEDS: PANTOPRAZOLE 40 MG INJ IV (05:41)
[2018-03-19 06:28] LABS: BLOOD UREA NITROGEN 8 mg/dl (7-20); CALCIUM 8.9 mg/dl (8.4-10.2); CARBON DIOXIDE 34 mmol/L (21-31); CHLORIDE 99 mmol/L (97-110); CREATININE 0.55 mg/dl (0.44-1.00); GLUCOSE 133 mg/dl (70-220); POTASSIUM 3.5 mmol/L (3.5-5.1); SODIUM 136 mmol/L (135-144)
[2018-03-19] MEDS: INSULIN ASPART [NOVOLOG] 3 ML PEN SC ×3 (08:00→17:13)
[2018-03-19] MEDS: METOPROLOL (XL) 50 MG TAB PO (09:00)
[2018-03-19] MEDS: FUROSEMIDE 40 MG TAB PO (09:00)
[2018-03-19] MEDS: METHADONE (1 MG/1 ML PO SYG) PO (09:00)
[2018-03-19] MEDS: MEGESTROL (40 MG/ML) 10ML CUP PO (09:00)
[2018-03-19] MEDS: ZINC SULFATE 220 MG CAP PO (09:00)
[2018-03-19 09:13] LABS: ANION GAP 3 (5-13)
[2018-03-19] MEDS: CEFTRIAXONE 1 GM/50 ML (PMX) 50 ML IVPB (09:22)
[2018-03-19] MEDS: ENOXAPARIN 80 MG/0.8 ML SYG SC (09:44)
[2018-03-19] MEDS: DIGOXIN 0.125 MG TAB PO (12:19)
[2018-03-19] MEDS: HYDROmorphONE 2 MG/ML SYG IV ×2 (14:54→23:11)
[2018-03-19] MEDS: DIGOXIN 500 MCG INJ IV (15:00)
[2018-03-19] MEDS ORDERED: INSULIN ASPART [NOVOLOG] 3 ML PEN SC ×2 (21:00)
[2018-03-19] MEDS: COLLAGENASE 5 GM (UD JAR) TOP (23:11)
[2018-03-20] MEDS: D5W-0.45 NACL + KCL 20 MEQ 1,000 ML IV (02:28)
[2018-03-20] MEDS: ACETAMINOPHEN 1000MG/100ML IV 100 ML IVPB ×2 (02:28→09:00)
[2018-03-20] MEDS: INSULIN ASPART [NOVOLOG] 3 ML PEN SC ×3 (06:00→11:55)
[2018-03-20] MEDS: PANTOPRAZOLE 40 MG INJ IV (06:17)
[2018-03-20] MEDS: HYDROmorphONE 2 MG/ML SYG IV ×2 (07:01→11:10)
[2018-03-20] MEDS: ONDANSETRON 4 MG INJ IV (07:35)
[2018-03-20 08:13] LABS: ADD MAN DIFF? NO
[2018-03-20 08:20] LABS: BASOPHIL # 0.1 10^3/ul (0.0-0.1); EOSINOPHILS # 0.5 10^3/ul (0.0-0.5); EOSINOPHILS % 5.3 % (0.0-7.0); HEMATOCRIT 40.2 % (37.0-47.0); HEMOGLOBIN 11.9 g/dl (12.0-16.0); LYMPHOCYTES # 1.1 10^3/ul (0.8-2.9); LYMPHOCYTES % 12.4 % (15.0-51.0); MEAN CORPUSCULAR HEMOGLOBIN 25.4 pg (29.0-33.0); MEAN CORPUSCULAR HGB CONC 29.6 g/dl (32.0-37.0); MEAN CORPUSCULAR VOLUME 85.7 fl (82.0-101.0); MEAN PLATELET VOLUME 11.4 fl (7.4-10.4); MONOCYTE # 0.6 10^3/ul (0.3-0.9); MONOCYTES % 6.7 % (0.0-11.0); NEUTROPHIL # 6.5 10^3/ul (1.6-7.5); NEUTROPHILS % 70.4 % (39.0-77.0); NUCLEATED RED BLOOD CELLS% 0.3 /100WBC (0.0-0.0); PLATELET COUNT 259 10^3/UL (140-415); RED BLOOD COUNT 4.69 10^6/ul (4.20-5.40); RED CELL DISTRIBUTION WIDTH 17.2 % (11.5-14.5)
[2018-03-20 08:20] LABS: WHITE BLOOD COUNT 9.2 10^3/ul (4.8-10.8)
[2018-03-20 08:35] LABS: ALANINE AMINOTRANSFERASE 76 IU/L (13-69); ALBUMIN 2.9 g/dl (3.3-4.9); ALKALINE PHOSPHATASE 246 IU/L (42-121); ANION GAP 14 (5-13); ASPARTATE AMINO TRANSFERASE 81 IU/L (15-46); BILIRUBIN,INDIRECT 0.4 mg/dl (0-1.1); BILIRUBIN,TOTAL 0.4 mg/dl (0.2-1.3); BLOOD UREA NITROGEN 11 mg/dl (7-20); CALCIUM 8.5 mg/dl (8.4-10.2); CARBON DIOXIDE 28 mmol/L (21-31); CHLORIDE 101 mmol/L (97-110); CREATININE 0.49 mg/dl (0.44-1.00); GLUCOSE 130 mg/dl (70-220); SODIUM 143 mmol/L (135-144); TOTAL PROTEIN 6.1 g/dl (6.1-8.1)
[2018-03-20] MEDS: COLLAGENASE 5 GM (UD JAR) TOP (09:00)
[2018-03-20] MEDS ORDERED: LORAZEPAM 2 MG INJ IV (12:00)
[2018-03-20] MEDS: morphine (DRIP) 100 MG/100 ML 100 ML IV (13:33)
== END 2018-03-20 17:00 | disposition expired | DRG 435 ==
LOC: MS1 03-20 13:08 → E/R 11:25 → 6WM 03-18 21:23
PROC: 02HV33Z Insertion of Infusion Device into Superior Vena Cava, Percutaneous Approach (ICD-10-PCS; principal; 2018-03-16)
DX: C25.9 Malignant neoplasm of pancreas, unspecified (principal); L89.323 Pressure ulcer of left buttock, stage 3; G93.49 Other encephalopathy; N39.0 Urinary tract infection, site not specified; C79.51 Secondary malignant neoplasm of bone; C78.00 Secondary malignant neoplasm of unspecified lung; I69.954 Hemiplegia and hemiparesis following unspecified cerebrovascular disease affecting left non-dominant side; J90 Pleural effusion, not elsewhere classified; E87.6 Hypokalemia; E11.43 Type 2 diabetes mellitus with diabetic autonomic (poly)neuropathy; E86.0 Dehydration; I48.91 Unspecified atrial fibrillation; K31.84 Gastroparesis; Z66 Do not resuscitate; Z95.0 Presence of cardiac pacemaker; I12.9 Hypertensive chronic kidney disease with stage 1 through stage 4 chronic kidney disease, or unspecified chronic kidney disease; N18.9 Chronic kidney disease, unspecified; Z86.711 Personal history of pulmonary embolism; R43.9 Unspecified disturbances of smell and taste; M79.602 Pain in left arm; R06.03 Acute respiratory distress
CPT/HCPCS: 36415; 36569; 70450; 71045; 73060; 76937; 80048; 80053; 80307; 81001; 82550; 82553; 82962; 83036; 83605; 83735; 84100; 84436; 84479; 84484; 85025; 85610; 85730; 87040; 87081; 87086; 92610; 93005; 96374; 96375; 99291-25; J3487